=== PATIENT | male | born 1950 | race Hispanic/Latino ===

== ENCOUNTER 2017-01-19 16:05 | Emergency (ER) | payer MEDICARE ==
[2017-01-19 17:00] LABS: Basophils % (Auto) 1.1 % (0.0-1.8); Hematocrit 41.7 % (35.5-45.6); Mean Corpuscular HGB Conc 34 % (32-34); Mean Corpuscular Hemoglobin 28 pg (28-32); Mean Corpuscular Volume 85 fl (84-94); Platelet Count 279 K/mm3 (140-440); Red Blood Count 4.93 M/mm3 (3.65-5.03); Red Cell Distribution Width 15.1 % (13.2-15.2); White Blood Count 9.3 K/mm3 (4.5-11.0)
[2017-01-19] MEDS ORDERED: REGLAN IV ONE (17:07)
[2017-01-19] MEDS ORDERED: NACL 0.9% 1000 ML 1,000 ML IV ONE (17:07)
[2017-01-19 17:23] LABS: Creatine Kinase MB 1.2 ng/mL (0.0-4.0)
[2017-01-19 17:24] LABS: Anion Gap 22 mmol/L; BUN/Creatinine Ratio 15.33; Blood Urea Nitrogen 23 mg/dL (9-20); Calcium 10.1 mg/dL (8.4-10.2); Carbon Dioxide 20 mmol/L (22-30); Chloride 101.7 mmol/L (98-107); Creatine Kinase 74 units/L (55-170); Glucose 103 mg/dL (75-100); Sodium 140 mmol/L (137-145)
[2017-01-19 18:52] LABS: Urine Drugs of Abuse Note Disclamer
[2017-01-19 18:59] LABS: Bilirubin,Urine NEG (Negative); Blood,Urine NEG (Negative); Ketones,Urine NEG (Negative); Leukocyte Esterase,Urine NEG (Negative); Nitrite,Urine NEG (Negative); Urobilinogen,Urine < 2.0 mg/dL (<2.0)
[2017-01-19 19:14] VITALS: BP 162/97
--- NOTE | 2017-01-19 19:56 | Emergency Department Report ---
ED Headache HPI - General Chief Complaint: Dizziness Stated Complaint: HEADACHE Time Seen by Provider: 01/19/17 16:44 Source: patient Exam Limitations: no limitations - History of Present Illness Initial Comments: 66-year-old male presents to the emergency department complaining of headache. Patient states he was sent from his doctor's office for intermittent headache and dizziness. Patient states he is feeling lightheaded like he might pass out , but he has not lost consciousness. Symptoms began earlier today. Patient states she was also tried cutting his grass when his symptoms began. He reports some nausea, but has not vomited. There are no other complaints. Timing/Duration: other (this morning) Quality: moderate, constant, throbbing Head Injury Location: global Recent Head Trauma: no recent headache/trauma Associated Symptoms: nausea/vomiting (nausea only) Allergies/Adverse Reactions: Allergies acetaminophen [From Tylenol-Codeine #3] Allergy (Verified 10/19/14 18:27) Itching codeine phosphate [From Tylenol-Codeine #3] Allergy (Verified 10/19/14 18:27) Itching ketorolac tromethamine [From Toradol] Allergy (Verified 10/19/14 18:27) Itching Penicillins Allergy (Verified 10/19/14 18:27) Itching Home Medications: Ambulatory Orders amLODIPine [Norvasc] 10 mg PO DAILY 12/29/15 Butalb/Acetamin/Caff 50-325-40 [Fioricet] 1 each PO Q4H PRN #20 tablet 01/19/17 Citalopram [Celexa] 20 mg PO QDAY 01/19/17 Pantoprazole [Protonix TAB] 40 mg PO QDAY PRN 01/19/17 Simvastatin [Zocor TAB] 20 mg PO QHS 01/19/17 Temazepam [Restoril] 30 mg PO QHS PRN 01/19/17 cloNIDine [Catapres] 0.2 mg PO BID 01/19/17 ED Review of Systems ROS: Stated complaint: HEADACHE Other details as noted in HPI Comment: All other systems reviewed and negative Gastrointestinal: nausea Neurological: headache ED Past Medical Hx - Past Medical History Previous Medical History?: Yes Hx Hypertension: Yes (recent elevations so hydralazine added) Hx Heart Attack/AMI: No Hx Liver Disease: No Hx Renal Disease: No Hx of Cancer: Yes (colon) Hx Headaches / Migraines: Yes Hx Asthma: No Additional medical history: high cholesterol. IBS. hemorrhoids - Surgical History Past Surgical History?: Yes Additional Surgical History: colon resection - Family History Family history: no significant - Social History Smoking Status: Never Smoker Substance Use Type: None - Medications Home Medications: Home Medications Medication Instructions Recorded Confirmed Last Taken Type amLODIPine [Norvasc] 10 mg PO DAILY 12/29/15 01/19/17 1 Day Ago History Butalb/Acetamin/Caff 50-325-40 1 each PO Q4H PRN #20 tablet 01/19/17 Unknown Rx [Fioricet] Citalopram [Celexa] 20 mg PO QDAY 01/19/17 01/19/17 Unknown History Pantoprazole [Protonix TAB] 40 mg PO QDAY PRN 01/19/17 01/19/17 Unknown History Simvastatin [Zocor TAB] 20 mg PO QHS 01/19/17 01/19/17 Unknown History Temazepam [Restoril] 30 mg PO QHS PRN 01/19/17 01/19/17 Unknown History cloNIDine [Catapres] 0.2 mg PO BID 01/19/17 01/19/17 Unknown History ED Physical Exam - General Limitations: No Limitations General appearance: alert, in no apparent distress - Head Head exam: Present: atraumatic, normocephalic - Eye Eye exam: Present: normal appearance, PERRL, EOMI - ENT ENT exam: Present: normal exam, normal orophraynx, mucous membranes moist - Neck Neck exam: Present: normal inspection, full ROM. Absent: tenderness - Respiratory Respiratory exam: Present: normal lung sounds bilaterally. Absent: respiratory distress - Cardiovascular Cardiovascular Exam: Present: regular rate, normal rhythm, normal heart sounds - GI/Abdominal GI/Abdominal exam: Present: soft, normal bowel sounds. Absent: distended, tenderness - Extremities Exam Extremities exam: Present: normal inspection, full ROM. Absent: tenderness - Back Exam Back exam: Present: normal inspection, full ROM. Absent: tenderness - Neurological Exam Neurological exam: Present: alert, oriented X3. Absent: motor sensory deficit - Skin Skin exam: Present: warm, dry, intact ED Course Vital Signs 01/19/17 01/19/17 01/19/17 16:16 16:20 16:27 Temperature 97.6 F Pulse Rate 106 H 102 H Respiratory 22 24 Rate Blood Pressure 169/107 169/107 O2 Sat by Pulse 98 99 99 Oximetry 01/19/17 01/19/17 01/19/17 16:30 16:40 16:50 Temperature Pulse Rate 98 H 106 H 95 H Respiratory 21 28 H 15 Rate Blood Pressure 169/107 159/102 O2 Sat by Pulse 98 99 96 Oximetry 01/19/17 01/19/17 01/19/17 17:00 17:10 17:20 Temperature Pulse Rate 96 H 101 H 106 H Respiratory 16 17 13 Rate Blood Pressure 165/99 165/99 183/115 O2 Sat by Pulse 96 97 95 Oximetry 01/19/17 01/19/17 01/19/17 17:30 17:40 17:50 Temperature Pulse Rate 97 H 100 H 101 H Respiratory 20 24 26 H Rate Blood Pressure 170/104 170/104 185/110 O2 Sat by Pulse 95 96 98 Oximetry 01/19/17 01/19/17 01/19/17 18:00 18:10 18:20 Temperature Pulse Rate 91 H 96 H 111 H Respiratory 26 H 22 16 Rate Blood Pressure 160/96 160/96 159/93 O2 Sat by Pulse 96 95 95 Oximetry 01/19/17 01/19/17 01/19/17 18:30 18:40 18:50 Temperature Pulse Rate 105 H 92 H 101 H Respiratory 15 13 20 Rate Blood Pressure 170/92 170/92 165/98 O2 Sat by Pulse 96 94 Oximetry 01/19/17 19:00 Temperature Pulse Rate 97 H Respiratory 17 Rate Blood Pressure 162/97 O2 Sat by Pulse Oximetry ED Medical Decision Making - Lab Data Result diagrams: 01/19/17 16:42 01/19/17 16:42 - Medical Decision Making Lab results reviewed and discussed with the patient. Patient reports his headache is resolved following IV fluids and medication. Patient will be discharged home at this time to follow up with his primary care physician. - Differential Diagnosis tension headache, migraine headache, dehydration Critical care attestation.: If time is entered above; I have spent that time in minutes in the direct care of this critically ill patient, excluding procedure time. ED Disposition Clinical Impression: Head ache Qualifiers: Headache type: tension-type Headache chronicity pattern: acute headache Intractability: not intractable Qualified Code(s): G44.209 - Tension-type headache, unspecified, not intractable Disposition: DC-01 TO HOME OR SELFCARE Is pt being admited?: No Condition: Stable Instructions: Acute Headache (ED) Prescriptions: Butalb/Acetamin/Caff 50-325-40 [Fioricet] 1 each PO Q4H PRN #20 tablet PRN Reason: Headache Referrals: PRIMARY CARE, [Primary Care Provider] - 3-5 Days Time of Disposition: 20:10
== END 2017-01-19 20:58 | disposition home or self-care (01) ==
LOC: ED 16:05
DX: G43.909 Migraine, unspecified, not intractable, without status migrainosus (principal); I10 Essential (primary) hypertension; E78.00 Pure hypercholesterolemia, unspecified; Z85.038 Personal history of other malignant neoplasm of large intestine; Z88.6 Allergy status to analgesic agent; Z88.0 Allergy status to penicillin
CPT/HCPCS: 36415; 80048; 80307; 81001; 82550; 82553; 83735; 84484; 85025; 96361; 96374; 99284; G0480; J2765; J7030; 80320

== ENCOUNTER 2017-02-28 07:10 | Emergency (ER) | payer MEDICARE ==
[2017-02-28 07:59] LABS: Basophils % (Auto) 0.9 % (0.0-1.8); Eosinophils % (Auto) 8.5 % (0.0-4.3); Hematocrit 41.2 % (35.5-45.6); Hemoglobin 13.8 gm/dl (11.8-15.2); Mean Corpuscular HGB Conc 34 % (32-34); Mean Corpuscular Hemoglobin 29 pg (28-32); Mean Corpuscular Volume 87 fl (84-94); Platelet Count 309 K/mm3 (140-440); Red Blood Count 4.74 M/mm3 (3.65-5.03); Red Cell Distribution Width 15.6 % (13.2-15.2); White Blood Count 11.5 K/mm3 (4.5-11.0)
[2017-02-28 08:21] LABS: Albumin 4.2 g/dL (3.9-5); Albumin/Globulin Ratio 1.1 %; BUN/Creatinine Ratio 12.3; Bilirubin,Total 0.5 mg/dL (0.1-1.2); Chloride 102.5 mmol/L (98-107); Potassium 4.1 mmol/L (3.6-5.0); Total Protein 7.9 g/dL (6.3-8.2)
[2017-02-28 12:26] LABS: Bilirubin,Urine NEG (Negative); Blood,Urine NEG (Negative); Ketones,Urine 20 mg/dL (Negative); Leukocyte Esterase,Urine NEG (Negative); Mucus,Urine FEW /HPF; Nitrite,Urine NEG (Negative); Urobilinogen,Urine < 2.0 mg/dL (<2.0)
[2017-02-28] MEDS ORDERED: BENTYL IM ONE (13:14)
[2017-02-28] MEDS ORDERED: NACL 0.9% 250ML 250 ML IV ONE (13:14)
[2017-02-28] MEDS ORDERED: REGLAN IV ONE (13:14)
--- NOTE | 2017-02-28 13:15 | Emergency Department Report ---
ED General Adult HPI - General Chief complaint: Abdominal Pain Stated complaint: RT LOWER ABD PAIN/VOMITING Time Seen by Provider: 02/28/17 13:03 Source: patient, RN notes reviewed, old records reviewed Mode of arrival: Ambulatory Limitations: No Limitations - History of Present Illness Initial comments: This is a 66-year-old male. He is previously known to me. The patient has a past medical history of hypertension, high cholesterol, depression, anxiety, possible colon cancer and renal colic in the distant past. The patient presents to the ER with multiple complaints. The patient's first complaint is abdominal pain. It is in the right lower quadrant/flank, and radiates to the back. He denies testicular pain, and to me he denies irritative and obstructive urinary symptoms. The abdominal pain is achy, and increases with palpation and increases with range of motion. He is defecating and passing gas. The patient states complaint is headache. The headache is global and throbbing. It is not sudden or thunderclap in nature. It did not reach maximal intensity within an hour. It is not the worst headache of his life. It has been present for a few days. He reports a worse headache a few days ago. The headache does not have exacerbating or relieving factors. The patient denies temporal pain, and he denies change in vision. He denies pain with chewing and swallowing food -: Gradual Location: head, abdomen Quality: aching Consistency: intermittent Improves with: rest Worsens with: movement Associated Symptoms: headaches, loss of appetite, malaise, nausea/vomiting - Related Data Home Medications Medication Instructions Recorded Confirmed Last Taken Citalopram [Celexa] 20 mg PO QDAY 01/19/17 01/19/17 Unknown Pantoprazole [Protonix TAB] 40 mg PO QDAY PRN 01/19/17 01/19/17 Unknown cloNIDine [Catapres] 0.2 mg PO BID 01/19/17 01/19/17 Unknown Previous Rx's Medication Instructions Recorded Last Taken Type Butalb/Acetamin/Caff 50-325-40 1 each PO Q4H PRN #20 tablet 01/19/17 Unknown Rx [Fioricet] Dicyclomine [Bentyl] 10 mg PO QID PRN #20 capsule 02/28/17 Unknown Rx Ondansetron [Zofran Odt] 4 mg PO QID PRN #20 tab.rapdis 02/28/17 Unknown Rx Allergies Allergy/AdvReac Type Severity Reaction Status Date / Time acetaminophen Allergy Itching Verified 10/19/14 18:27 [From Tylenol-Codeine #3] codeine phosphate Allergy Itching Verified 10/19/14 18:27 [From Tylenol-Codeine #3] ketorolac tromethamine Allergy Itching Verified 10/19/14 18:27 [From Toradol] Penicillins Allergy Itching Verified 10/19/14 18:27 ED Review of Systems ROS: Stated complaint: RT LOWER ABD PAIN/VOMITING Other details as noted in HPI Constitutional: malaise. denies: fever Eyes: denies: eye discharge ENT: denies: epistaxis Respiratory: denies: cough Cardiovascular: denies: chest pain Genitourinary: denies: testicular pain Musculoskeletal: denies: back pain Skin: denies: lesions Neurological: headache Psychiatric: anxiety ED Past Medical Hx - Past Medical History Previous Medical History?: Yes Hx Hypertension: Yes (recent elevations so hydralazine added) Hx Heart Attack/AMI: No Hx Liver Disease: No Hx Renal Disease: No Hx Headaches / Migraines: Yes Hx Asthma: No Additional medical history: high cholesterol. IBS. hemorrhoids - Surgical History Past Surgical History?: Yes Additional Surgical History: colon resection - Social History Smoking Status: Never Smoker Substance Use Type: None - Medications Home Medications: Home Medications Medication Instructions Recorded Confirmed Last Taken Type Butalb/Acetamin/Caff 50-325-40 1 each PO Q4H PRN #20 tablet 01/19/17 Unknown Rx [Fioricet] Citalopram [Celexa] 20 mg PO QDAY 01/19/17 01/19/17 Unknown History Pantoprazole [Protonix TAB] 40 mg PO QDAY PRN 01/19/17 01/19/17 Unknown History cloNIDine [Catapres] 0.2 mg PO BID 01/19/17 01/19/17 Unknown History Dicyclomine [Bentyl] 10 mg PO QID PRN #20 capsule 02/28/17 Unknown Rx Ondansetron [Zofran Odt] 4 mg PO QID PRN #20 tab.rapdis 02/28/17 Unknown Rx ED Physical Exam - General Limitations: No Limitations General appearance: alert, anxious - Head Head exam: Present: atraumatic, normocephalic - Eye Eye exam: Present: normal appearance, EOMI. Absent: nystagmus - ENT ENT exam: Present: normal exam, normal orophraynx, mucous membranes moist, normal external ear exam - Neck Neck exam: Present: normal inspection, full ROM. Absent: tenderness, meningismus - Respiratory Respiratory exam: Present: normal lung sounds bilaterally. Absent: respiratory distress, wheezes, rales, rhonchi, stridor, chest wall tenderness, accessory muscle use, decreased breath sounds, prolonged expiratory - Cardiovascular Cardiovascular Exam: Present: regular rate, normal rhythm, normal heart sounds. Absent: bradycardia, tachycardia, irregular rhythm, systolic murmur, diastolic murmur, rubs, gallop - GI/Abdominal GI/Abdominal exam: Present: soft, normal bowel sounds. Absent: distended, tenderness, guarding, rebound, rigid, pulsatile mass - Rectal Rectal exam: Present: deferred - exam: Present: normal inspection, other (there is no testicular tenderness. There is normal testicular lie bilaterally. There is normal cremasteric reflex bilaterally.). Absent: testicular tenderness External exam: Present: normal external exam - Extremities Exam Extremities exam: Present: normal inspection, full ROM, normal capillary refill. Absent: tenderness, pedal edema, joint swelling, calf tenderness - Back Exam Back exam: Present: normal inspection, full ROM. Absent: tenderness, CVA tenderness (R), CVA tenderness (L), muscle spasm, paraspinal tenderness, vertebral tenderness - Neurological Exam Neurological exam: Present: alert, oriented X3, normal gait, other (Extraocular movements intact. Tongue midline. No facial droop. Facial sensation intact to light touch in the V1, V2, V3 distribution bilaterally. 5 and 5 strength in 4 extremities.. Sensation is intact to light touch in 4 extremities.). Absent : motor sensory deficit - Psychiatric Psychiatric exam: Present: normal affect, normal mood - Skin Skin exam: Present: warm, dry, intact, normal color. Absent: rash ED Course Vital Signs 02/28/17 02/28/17 02/28/17 07:38 13:07 13:19 Temperature 98.4 F Pulse Rate 60 62 Respiratory 16 10 L 18 Rate Blood Pressure 160/93 O2 Sat by Pulse 96 98 100 Oximetry ED Medical Decision Making - Lab Data Result diagrams: 02/28/17 07:46 07/24/17 07:46 Vital Signs 02/28/17 02/28/17 02/28/17 07:38 13:07 13:19 Temperature 98.4 F Pulse Rate 60 62 Respiratory 16 10 L 18 Rate Blood Pressure 160/93 O2 Sat by Pulse 96 98 100 Oximetry Labs 02/28/17 02/28/17 02/28/17 07:46 07:46 11:30 WBC 11.5 H RBC 4.74 Hgb 13.8 Hct 41.2 MCV 87 MCH 29 MCHC 34 RDW 15.6 H Plt Count 309 Lymph % (Auto) 22.9 [place]ake % (Auto) 7.0 Eos % (Auto) 8.5 H Baso % (Auto) 0.9 Lymph # 2.6 [place]ake # 0.8 Eos # 1.0 H Baso # 0.1 Seg Neutrophils % 60.7 Seg Neutrophils # 7.0 Sodium 142 Potassium 4.1 Chloride 102.5 Carbon Dioxide 24 Anion Gap 20 BUN 16 Creatinine 1.3 Estimated GFR 55 BUN/Creatinine Ratio 12.30 Glucose 133 H Calcium 10.0 Total Bilirubin 0.50 AST 21 ALT 22 Alkaline Phosphatase 138 H Total Protein 7.9 Albumin 4.2 Albumin/Globulin Ratio 1.1 Lipase 26 Urine Color Yellow Urine Turbidity Clear Urine pH 5.0 Ur Specific [place] 1.017 Urine Protein 100 mg/dl Urine Glucose (UA) 50 Urine Ketones 20 Urine Blood Neg Urine Nitrite Neg Urine Bilirubin Neg Urine Urobilinogen < 2.0 Ur Leukocyte Esterase Neg Urine WBC (Auto) 1.0 Urine RBC (Auto) 2.0 U Epithel Cells (Auto) < 1.0 Urine Mucus Few - EKG Data -: EKG Interpreted by Nv EKG shows normal: sinus rhythm, axis, intervals, QRS complexes, ST-T waves - Radiology Data Radiology results: report reviewed, image reviewed Noncontrast CT scan of the brain is negative for acute disease. X-ray of the abdomen and pelvis demonstrates hepatic surface nodularity and lobulation which is new. There are small intrinsic calcifications with no obvious biliary dilatation. There is a non-aneurysmal abdominal aorta. There is no hydronephrosis noted, small bilateral renal calcifications are noted, with the largest 4-5 mm right inferior renal calculus no longer identified. There is a 4 mm left lower renal cortical hyperdense hemorrhagic cyst. Bilateral renal cortical hypodensities cysts are noted. The GI tract is grossly obstructive with a normal appendix. There is a 4 x 5 x 5.6 cm enlarged prostate. Tiny prostatic calcifications. There is a stable rectosigmoid anastomosis and slight presacral stranding. There is SI joint DJD noted. - Medical Decision Making Differential diagnosis: Migraine headache, tension headache, cluster headache, cancer/tumor/malignancy constipation, renal colic, appendicitis, Assessment and plan: 66-year-old male with 2 complaints. Headache is not consistent with subarachnoid hemorrhage, stroke or temporal arteritis, he has a GCS of 15, with an NIH score of 0, with a negative CT scan of the brain. He felt improved after Reglan. His abdomen is soft and benign, with no rebound, guarding or peritoneal signs, to me he denied irritative and obstructive urinary symptoms, his genital exam was within normal limits. CT scan suggested nonspecific lesion in the liver, suggestive of cancer/tumor/malignancy. The patient is instructed to follow up with his outpatient primary care doctor, or hematology/oncology. I will also refer him to general surgery for consideration of biopsy. I impressed upon the patient importance of close outpatient follow-up for further evaluation and management for possible hepatic malignancy. Critical care attestation.: If time is entered above; I have spent that time in minutes in the direct care of this critically ill patient, excluding procedure time. ED Disposition Clinical Impression: Abdominal pain, Head ache Disposition: DC-01 TO HOME OR SELFCARE Is pt being admited?: No Does the pt Need Aspirin: No Condition: Good Additional Instructions: CT scan demonstrated nonspecific mass on the liver, concerning for cancer/tumor/ malignancy. Discontinue Zocor, restoril. Take the pain medication, nausea medication as directed. Follow up with either a primary care doctor hematology/demo specialist, for general surgeon as soon as possible to coordinate outpatient care. I recommend following up either with your primary care doctor or Dr. Robledo the oncologist as soon as possible to coordinate outpatient care. Not following up in a timely fashion may result in an undiagnosed tumor/cancer/malignancy. Do not take Motrin or acetaminophen. Return to the ER right away with new pain, worsened pain, migration of pain, fevers, chills, chest pain, shortness of breath, intractable nausea or vomiting, confusion, inability to tolerate liquid feeds. Prescriptions: Dicyclomine [Bentyl] 10 mg PO QID PRN #20 capsule PRN Reason: Pain Ondansetron [Zofran Odt] 4 mg PO QID PRN #20 tab.rapdis PRN Reason: Nausea Referrals: IRMA QUIÑONEZ MD [Primary Care Provider] - 3-5 Days VIDAL WESTBROOK MD [Staff Physician] - 3-5 Days JANNET ROBLEDO MD [Staff Physician] - 3-5 Days
--- NOTE | 2017-02-28 13:53 | Cat Scan Report ---
CT ABDOMEN AND PELVIS WITHOUT CONTRAST INDICATION: Abdominal pain. RUQ pain, radiating to right flank. History of kidney stones. COMPARISON: 09/16/2015 CT. FINDINGS: Noncontrast abdomen and pelvis CT performed. LUNG BASES: Mild density/thickening along the major fissures inferiorly with interval resolution of basilar atelectasis. No effusions. ABDOMEN: Please note that sensitivity to detect small visceral lesions is limited due to the absence of intravenous or oral contrast. Stable cholecystectomy clips. Hepatic surface nodularity/lobulation is new as on axial series 2, images 70-110. Subjacent subtle 8 x 6 x 6.7 cm minimally hyperdense mass though suspected centered about the junction of the right and left lobes. Couple small intrinsic calcifications, axial image 87. No biliary dilatation. Grossly unremarkable unenhanced spleen, pancreas, adrenals, nonaneurysmal abdominal aorta with few atherosclerotic calcifications and IVC. No hydronephrosis with small bilateral renal calcifications now measure approximately 2 mm with the largest 4-5 mm inferior right renal calculus no longer identified, likely passed in the interval. Approximately 4 mm left lower renal cortical hyperdense hemorrhagic cyst may again be noted, axial image 177. Bilateral renal cortical hypodense cysts measure up to 3 cm right interpolar and approximately 2.6 cm on the left. Few small, subcentimeter retroperitoneal and mesenteric lymph nodes. Few larger clare hepatis lymph nodes approximately 1.3 cm, axial image 116. No ascites. Nonopacified GI tract evaluation limited, though grossly nonobstructive. Normal appendix. Hepatic flexure again seen positioned between the right hemidiaphragm and the liver. Small fat-containing umbilical hernia with a transverse neck of 1 cm. PELVIS: Approximately 4.5 cm AP x 5.6 cm transverse enlarged prostate creates an impression at the bladder base and may be correlated for clinically and with PSA. Tiny prostatic calcification. Stable rectosigmoid anastomosis and slight presacral stranding as on axial images 320-365. Nonopacified urinary bladder suboptimally distended and assessed. No significant free fluid or definite adenopathy. Bilateral SI joint degenerative bridging with joint space obliteration. Few other mild imaged spinal degenerative changes. Osteopenia not excluded. CONCLUSION: 1. Noncontrast CT appearance suspicious for central hepatic mass, possibly hepatocellular carcinoma versus metastatic if there is a prior history of cancer in this patient with rectosigmoid anastomosis noted. Please correlate clinically and may also be further evaluated with dedicated liver mass protocol CT or MRI, as warranted. Few small/prominent clrae hepatis lymph nodes also seen. 2. Small nonobstructing bilateral renal calculi noted with possible interval passage of dominant right renal calculus since September 2015. 3. Various other findings, including stable cholecystectomy, bilateral renal cysts, enlarged prostate as also interval resolution of basilar atelectasis, amongst others, as detailed above. Thank you for the opportunity to participate in this patient's care.
--- NOTE | 2017-02-28 14:12 | Cat Scan Report ---
CT HEAD WITHOUT CONTRAST INDICATION: Headache. COMPARISON: 03/22/2015. FINDINGS: Noncontrast head CT again demonstrates symmetric, age-appropriate ventricles and sulci. Mild periventricular hypodense small vessel ischemic disease. No acute infarct, hemorrhage, mass effect or midline shift. No abnormal extra axial fluid collections. Normal posterior fossa with preserved basilar cisterns. Normal eye globes. Clear imaged paranasal sinuses and mastoid air cells. Normal calvarium and scalp. Few anterior teeth remaining. CONCLUSION: No acute intracranial CT abnormality or significant interval change, as described. Thank you for the opportunity to participate in this patient's care.
[2017-02-28 16:14] VITALS: BP 142/80
--- NOTE | 2017-02-28 17:37 | Emergency Department Report ---
Entered by DAYO HICKEY, acting as scribe for UMBERTO RASCON PA. Chief Complaint: Abdominal Pain Stated Complaint: RT LOWER ABD PAIN/VOMITING Time Seen by Provider: 02/28/17 10:32 - HPI History of Present Illness: Pt c/o throbbing RLQ abdominal pain that radiates to right low back pain for 2 days. Reports decreased PO intake. Reports nausea, vomiting, and chills. Reports headaches. Denies dysuria, urgency, and frequency. Denies hematuria. Denies rectal bleeding and diarrhea. Denies chest pain and SOB Notes Hx of kidney stones and colon cancer. PSHx of kidney stone surgery PCP is Dr. Levin. Notes his PCP sent him to the ED last week for a panic attack - ROS Review of Systems: All system are negative unless stated in HPI above. - Exam Vital Signs: Vital Signs 02/28/17 07:38 Temperature 98.4 F Pulse Rate 60 Respiratory 16 Rate Blood Pressure 160/93 O2 Sat by Pulse 96 Oximetry Physical Exam: General: well nourished, well developed, 66 year old male in no acute distress and nontoxic in appearance Abdomen: Soft, normal bowel sounds in all quadrants. Positive guarding. RLU tenderness. Right CVA tenderness MSE screening note: Focused history and physical exam performed. Due to findings the following was ordered: see below ED Medical Decision Making - Lab Data Result diagrams: 02/28/17 07:46 02/28/17 07:46 - Medical Decision Making Patient screened by provider in triage area. UA and CT scan of abdomen/pelvis sent in patient fast track. Patient to be seen by MD on main ED side. ED Disposition for MSE Clinical Impression: Abdominal pain, Head ache Disposition: DC-01 TO HOME OR SELFCARE Condition: Good Additional Instructions: CT scan demonstrated nonspecific mass on the liver, concerning for cancer/tumor/ malignancy. Discontinue Zocor, restoril. Take the pain medication, nausea medication as directed. Follow up with either a primary care doctor hematology/software qa system specialist, for general surgeon as soon as possible to coordinate outpatient care. I recommend following up either with your primary care doctor or Dr. Robledo the oncologist as soon as possible to coordinate outpatient care. Not following up in a timely fashion may result in an undiagnosed tumor/cancer/malignancy. Do not take Motrin or acetaminophen. Return to the ER right away with new pain, worsened pain, migration of pain, fevers, chills, chest pain, shortness of breath, intractable nausea or vomiting, confusion, inability to tolerate liquid feeds. Prescriptions: Dicyclomine [Bentyl] 10 mg PO QID PRN #20 capsule PRN Reason: Pain Ondansetron [Zofran Odt] 4 mg PO QID PRN #20 tab.rapdis PRN Reason: Nausea Referrals: JANNET ROBLEDO MD [Staff Physician] - 3-5 Days IRMA LEVIN MD [Primary Care Provider] - 3-5 Days VIDAL WESTBROOK MD [Staff Physician] - 3-5 Days This documentation as recorded by the EDELMIRA johnson JASMINE,accurately reflects the service I personally performed and the decisions made by ,UMBERTO RASCON PA.
== END 2017-02-28 16:14 | disposition home or self-care (01) ==
LOC: ED 07:10
DX: R10.9 Unspecified abdominal pain (principal); G43.909 Migraine, unspecified, not intractable, without status migrainosus; I10 Essential (primary) hypertension; E78.00 Pure hypercholesterolemia, unspecified; K58.9 Irritable bowel syndrome, unspecified; Z88.0 Allergy status to penicillin; Z88.8 Allergy status to other drugs, medicaments and biological substances
CPT/HCPCS: 36415; 70450; 74176; 80053; 81001; 83690; 85025; 87086; 93005; 93010; 96372; 96374; 99284; J0500; J2765; J7050

== ENCOUNTER 2017-06-04 04:21 | Inpatient (IN) | payer MEDICARE ==
[2017-06-04] MEDS ORDERED: BENTYL IM ONE (05:19)
[2017-06-04] MEDS ORDERED: ZOFRAN IM ONE (05:20)
[2017-06-04 06:19] LABS: Calcium 10.1 mg/dL (8.4-10.2); Chloride 98.8 mmol/L (98-107); Potassium 5.1 mmol/L (3.6-5.0)
[2017-06-04 06:39] LABS: Basophils % (Auto) 0.4 % (0.0-1.8); Eosinophils % (Auto) 2.9 % (0.0-4.3); Hematocrit 40.5 % (35.5-45.6); Hemoglobin 13.9 gm/dl (11.8-15.2); Mean Corpuscular HGB Conc 34 % (32-34); Mean Corpuscular Hemoglobin 30 pg (28-32); Mean Corpuscular Volume 87 fl (84-94); Platelet Count 258 K/mm3 (140-440); Red Blood Count 4.66 M/mm3 (3.65-5.03); Red Cell Distribution Width 15.7 % (13.2-15.2); White Blood Count 9.4 K/mm3 (4.5-11.0)
[2017-06-04] MEDS ORDERED: ZOFRAN IV ONE (06:46)
[2017-06-04] MEDS ORDERED: MORPHINE IV ONE ×3 (06:47→16:19)
[2017-06-04] MEDS ORDERED: NACL 0.9% 1000 ML 1,000 ML IV ONE ×2 (06:48→15:11)
--- NOTE | 2017-06-04 08:59 | XRay Report ---
Abdominal series: History: Nausea vomiting abdominal pain. Findings: No free intraperitoneal. No bone distention of wall thickening. Stool in colon. No radiopaque calculus or abnormal calcification. Mild emphysematous changes. No acute consolidation in the lung parenchyma. Impression: No acute lung changes. No acute abdominal findings.
[2017-06-04] MEDS: MORPHINE IV ONE ×2 (10:29→10:36)
--- NOTE | 2017-06-04 11:06 | Emergency Department Report ---
<RED REYNOLDS - Last Filed: 06/04/17 16:06> ED Abdominal Pain HPI - General Chief Complaint: Nausea/Vomiting/Diarrhea Stated Complaint: ABD PAIN/DIZZINESS Time Seen by Provider: 06/04/17 06:32 Source: EMS Mode of arrival: Stretcher Limitations: No Limitations - History of Present Illness Initial Comments: 67 YO MALE WITH C/O ABDOMINAL PAIN , NAUSEA, AND VOMITING. HE BECAME NAUSEATED AT 0200 THIS MORNING AND STARTED TO VOMIT HE FEELS THE ROOM IS SPINNING WHIILE SITTING DOWN AND ABDOMEN CRAMPING. HE RATES HIS PAIN AT 10/10 AND HAS HAD BOWEL OBSTRUCTION AND COLON CANCER FOR WHICH HE HAD A RESECTION. PER PT, HE HAD A SMALL BOWEL OBSTRUCTIONIN THE PAST MD Complaint: abdominal pain -: Gradual Location: epigastric Radiation: none Migration to: no migration Severity scale (0 -10): 10 Quality: cramping Consistency: constant Worsens With: nothing Associated Symptoms: nausea, vomiting - Related Data Home Medications Medication Instructions Recorded Confirmed Last Taken Citalopram [Celexa] 20 mg PO QDAY 01/19/17 01/19/17 Unknown Pantoprazole [Protonix TAB] 40 mg PO QDAY PRN 01/19/17 01/19/17 Unknown cloNIDine [Catapres] 0.2 mg PO BID 01/19/17 01/19/17 Unknown Previous Rx's Medication Instructions Recorded Last Taken Type Butalb/Acetamin/Caff 50-325-40 1 each PO Q4H PRN #20 tablet 01/19/17 Unknown Rx [Fioricet] Dicyclomine [Bentyl] 10 mg PO QID PRN #20 capsule 02/28/17 Unknown Rx Ondansetron [Zofran Odt] 4 mg PO QID PRN #20 tab.rapdis 02/28/17 Unknown Rx Allergies Allergy/AdvReac Type Severity Reaction Status Date / Time acetaminophen Allergy Itching Verified 10/19/14 18:27 [From Tylenol-Codeine #3] codeine phosphate Allergy Itching Verified 10/19/14 18:27 [From Tylenol-Codeine #3] ketorolac tromethamine Allergy Itching Verified 10/19/14 18:27 [From Toradol] Penicillins Allergy Itching Verified 10/19/14 18:27 ED Review of Systems ROS: Stated complaint: ABD PAIN/DIZZINESS Other details as noted in HPI Constitutional: denies: chills, fever Eyes: denies: eye pain, eye discharge, vision change ENT: denies: ear pain, throat pain Respiratory: denies: cough, shortness of breath, wheezing Cardiovascular: denies: chest pain, palpitations Endocrine: no symptoms reported Gastrointestinal: nausea. denies: abdominal pain, diarrhea, hematemesis, hematochezia Genitourinary: denies: urgency, dysuria Musculoskeletal: denies: back pain, joint swelling, arthralgia Skin: denies: rash, lesions Neurological: denies: headache, weakness, paresthesias Psychiatric: denies: anxiety, depression, auditory hallucinations, visual hallucinations Hematological/Lymphatic: denies: easy bleeding, easy bruising ED Past Medical Hx - Past Medical History Hx Hypertension: Yes (recent elevations so hydralazine added) Hx Heart Attack/AMI: No Hx Liver Disease: No Hx Renal Disease: No Hx Headaches / Migraines: Yes Hx Asthma: No Additional medical history: high cholesterol. IBS. hemorrhoids - Surgical History Additional Surgical History: colon resection - Social History Smoking Status: Never Smoker Substance Use Type: None - Medications Home Medications: Home Medications Medication Instructions Recorded Confirmed Last Taken Type Butalb/Acetamin/Caff 50-325-40 1 each PO Q4H PRN #20 tablet 01/19/17 Unknown Rx [Fioricet] Citalopram [Celexa] 20 mg PO QDAY 01/19/17 01/19/17 Unknown History Pantoprazole [Protonix TAB] 40 mg PO QDAY PRN 01/19/17 01/19/17 Unknown History cloNIDine [Catapres] 0.2 mg PO BID 01/19/17 01/19/17 Unknown History Dicyclomine [Bentyl] 10 mg PO QID PRN #20 capsule 02/28/17 Unknown Rx Ondansetron [Zofran Odt] 4 mg PO QID PRN #20 tab.rapdis 02/28/17 Unknown Rx ED Physical Exam - General Limitations: Other (BILIOUS VOMITUS NOTED INHIS BASIN) General appearance: alert, in distress, other (DESHEVELED) - Head Head exam: Present: atraumatic, normocephalic - Eye Eye exam: Present: normal appearance, EOMI. Absent: scleral icterus, conjunctival injection Pupils: Present: normal accommodation. Absent: irregular - ENT ENT exam: Present: mucous membranes moist, other - Neck Neck exam: Present: normal inspection, full ROM - Respiratory Respiratory exam: Present: normal lung sounds bilaterally. Absent: respiratory distress, wheezes, rales, chest wall tenderness - Cardiovascular Cardiovascular Exam: Present: regular rate, normal rhythm, normal heart sounds - GI/Abdominal GI/Abdominal exam: Present: soft, tenderness (EPIGASTRIUM), guarding, diminished bowel sounds, other (MIDLINE INCISION). Absent: rebound, rigid, hyperactive bowel sounds, hypoactive bowel sounds - Rectal Rectal exam: Present: deferred - Extremities Exam Extremities exam: Present: normal inspection, full ROM. Absent: tenderness - Back Exam Back exam: Present: normal inspection, full ROM. Absent: tenderness - Neurological Exam Neurological exam: Present: alert, oriented X3 ED Course Vital Signs 06/04/17 06/04/17 06/04/17 04:33 04:59 05:00 Temperature 97.9 F Pulse Rate 65 69 Respiratory 20 15 12 Rate Blood Pressure 150/66 Blood Pressure [Left] O2 Sat by Pulse 98 98 Oximetry 06/04/17 06/04/17 06/04/17 05:01 05:03 05:05 Temperature Pulse Rate 64 65 69 Respiratory 20 34 H 38 H Rate Blood Pressure 150/66 150/66 150/66 Blood Pressure [Left] O2 Sat by Pulse 95 99 99 Oximetry 06/04/17 06/04/17 06/04/17 05:07 05:09 05:11 Temperature Pulse Rate 70 81 81 Respiratory 28 H 18 25 H Rate Blood Pressure 150/66 150/66 150/66 Blood Pressure [Left] O2 Sat by Pulse 100 97 99 Oximetry 06/04/17 06/04/17 06/04/17 05:13 05:15 05:17 Temperature Pulse Rate 73 73 71 Respiratory 38 H 23 25 H Rate Blood Pressure 150/66 150/77 150/77 Blood Pressure [Left] O2 Sat by Pulse 100 99 98 Oximetry 06/04/17 06/04/17 06/04/17 05:19 05:21 05:23 Temperature Pulse Rate 73 74 72 Respiratory 25 H 22 25 H Rate Blood Pressure 150/77 150/77 150/77 Blood Pressure [Left] O2 Sat by Pulse 99 99 Oximetry 06/04/17 06/04/17 06/04/17 05:25 05:27 05:29 Temperature Pulse Rate 72 72 80 Respiratory 23 23 23 Rate Blood Pressure 150/77 150/77 150/77 Blood Pressure [Left] O2 Sat by Pulse 100 97 99 Oximetry 06/04/17 06/04/17 06/04/17 05:31 05:33 05:35 Temperature Pulse Rate 75 72 72 Respiratory 33 H 46 H 22 Rate Blood Pressure 147/87 147/87 147/87 Blood Pressure [Left] O2 Sat by Pulse 99 99 99 Oximetry 06/04/17 06/04/17 06/04/17 05:37 05:38 05:39 Temperature Pulse Rate 69 68 Respiratory 28 H 22 22 Rate Blood Pressure 147/87 147/87 Blood Pressure [Left] O2 Sat by Pulse 97 97 98 Oximetry 06/04/17 06/04/17 06/04/17 05:41 05:43 05:44 Temperature 97.9 F Pulse Rate 68 69 65 Respiratory 20 18 Rate Blood Pressure 147/87 147/87 Blood Pressure 150/66 [Left] O2 Sat by Pulse 98 99 Oximetry 06/04/17 06/04/17 06/04/17 05:45 05:46 05:47 Temperature Pulse Rate 69 67 71 Respiratory 23 20 16 Rate Blood Pressure 147/87 139/73 139/73 Blood Pressure [Left] O2 Sat by Pulse 98 99 Oximetry 06/04/17 06/04/17 06/04/17 05:49 05:51 05:53 Temperature Pulse Rate 70 69 68 Respiratory 15 24 32 H Rate Blood Pressure 139/73 139/73 139/73 Blood Pressure [Left] O2 Sat by Pulse 99 98 99 Oximetry 06/04/17 06/04/17 06/04/17 05:55 05:57 05:59 Temperature Pulse Rate 68 69 70 Respiratory 30 H 20 29 H Rate Blood Pressure 139/73 139/73 139/73 Blood Pressure [Left] O2 Sat by Pulse 98 98 97 Oximetry 06/04/17 06/04/17 06/04/17 06:00 06:01 06:03 Temperature Pulse Rate 69 69 68 Respiratory 33 H 19 19 Rate Blood Pressure 130/70 130/70 130/70 Blood Pressure [Left] O2 Sat by Pulse 98 98 97 Oximetry 06/04/17 06/04/17 06/04/17 06:05 06:07 06:09 Temperature Pulse Rate 69 72 70 Respiratory 26 H 20 22 Rate Blood Pressure 130/70 130/70 130/70 Blood Pressure [Left] O2 Sat by Pulse 98 98 97 Oximetry 06/04/17 06/04/17 06/04/17 06:11 06:13 06:15 Temperature Pulse Rate 66 70 71 Respiratory 16 22 17 Rate Blood Pressure 130/70 130/70 128/73 Blood Pressure [Left] O2 Sat by Pulse 99 98 Oximetry 06/04/17 06/04/17 06/04/17 06:16 06:17 06:19 Temperature Pulse Rate 72 72 71 Respiratory 25 H 26 H 41 H Rate Blood Pressure 128/73 128/73 128/73 Blood Pressure [Left] O2 Sat by Pulse 97 98 94 Oximetry 06/04/17 06/04/17 06/04/17 06:21 06:23 06:25 Temperature Pulse Rate 71 71 72 Respiratory 14 17 22 Rate Blood Pressure 128/73 128/73 128/73 Blood Pressure [Left] O2 Sat by Pulse 98 97 99 Oximetry 06/04/17 06/04/17 06/04/17 06:27 06:29 06:31 Temperature Pulse Rate 71 76 73 Respiratory 16 16 17 Rate Blood Pressure 128/73 128/73 140/96 Blood Pressure [Left] O2 Sat by Pulse 98 94 99 Oximetry 06/04/17 06/04/17 06/04/17 06:33 06:35 06:37 Temperature Pulse Rate 70 68 72 Respiratory 19 19 14 Rate Blood Pressure 140/96 140/96 140/96 Blood Pressure [Left] O2 Sat by Pulse 99 98 98 Oximetry 06/04/17 06/04/17 06/04/17 06:39 06:41 06:43 Temperature Pulse Rate 71 71 69 Respiratory 16 33 H 22 Rate Blood Pressure 140/96 140/96 140/96 Blood Pressure [Left] O2 Sat by Pulse 98 98 98 Oximetry 06/04/17 06/04/17 06/04/17 06:45 06:46 06:47 Temperature Pulse Rate 73 74 71 Respiratory 19 20 14 Rate Blood Pressure 145/103 145/103 145/103 Blood Pressure [Left] O2 Sat by Pulse 100 99 98 Oximetry 06/04/17 06/04/17 06/04/17 06:49 09:16 13:16 Temperature Pulse Rate 71 81 88 Respiratory 19 20 18 Rate Blood Pressure 145/103 Blood Pressure 160/89 149/88 [Left] O2 Sat by Pulse 98 99 Oximetry ED Medical Decision Making - Lab Data Result diagrams: 06/04/17 05:46 06/04/17 05:46 - Radiology Data HE WISHES TO AND TO GO TO [facility] TO BE WITH HIS PARTNER. Critical care attestation.: If time is entered above; I have spent that time in minutes in the direct care of this critically ill patient, excluding procedure time. ED Disposition Clinical Impression: Liver mass Nausea & vomiting Qualifiers: Vomiting type: bilious vomiting Qualified Code(s): R11.14 - Bilious vomiting Disposition: DC-09 OP ADMIT IP TO THIS HOSP Condition: Stable Referrals: PRIMARY CARE, [Primary Care Provider] - 3-5 Days <POLA FERNÁNDEZ - Last Filed: 06/04/17 16:38> ED Course - Consultations Consultation #1: 06/04/17 16:38 Discussed with hospitalist, he accepts patient for admission ED Medical Decision Making - Lab Data Result diagrams: 06/04/17 05:46 06/04/17 05:46 Critical Care Time: No ED Disposition Is pt being admited?: Yes Does the pt Need Aspirin: No Time of Disposition: 16:37
[2017-06-04 11:49] LABS: Alanine Aminotransferase 28 units/L (7-56); Albumin 4.5 g/dL (3.9-5); Albumin/Globulin Ratio 1.2 %; Alkaline Phosphatase 157 units/L (35-129); Bilirubin,Direct < 0.2 mg/dL (0-0.2); Bilirubin,Indirect 0.3 mg/dL; Total Protein 8.3 g/dL (6.3-8.2)
[2017-06-04] MEDS ORDERED: NACL ONE (14:58)
[2017-06-04] MEDS ORDERED: REGLAN IV ONE (15:12)
[2017-06-04 16:08] LABS: Bilirubin,Urine NEG (Negative); Blood,Urine NEG (Negative); Ketones,Urine 20 mg/dL (Negative); Leukocyte Esterase,Urine NEG (Negative); Nitrite,Urine NEG (Negative); Urobilinogen,Urine < 2.0 mg/dL (<2.0); WBC,Urine < 1.0 /HPF (0.0-6.0)
--- NOTE | 2017-06-04 16:16 | Cat Scan Report ---
FINAL REPORT EXAM: CT ABD AND PELVIS W CONTRAST HISTORY: NAUSEA AND VOMITING, ABD PAIN TECHNIQUE: CT of the abdomen and pelvis with intravenous contrast PRIORS: Correlation is made to prior CT abdomen and pelvis of September 16/2016 FINDINGS: No focal abnormality identified in the visualized portion of the lung bases. Mild linear scarring is. There is an ill-defined mass seen centrally within the liver largely within the medial left. There is some enhancement. It measures approximately 6.4 x 5.1 centimeters. There are few scattered calcification seen centrally these are increased from the prior exam. A single punctate calcification is identifiable on the prior study. No focal pancreatic abnormalities are identified. The spleen is normal in size and attenuation Multiple rounded low-density foci are present right kidney the largest at the lower pole measuring 2.9 centimeters consistent with a cyst. There is a upper pole left renal cyst measuring 2.5 centimeters. Kidneys demonstrate no evidence for hydronephrosis. There is an enlarged portacaval lymph node measuring 1.4 x 1.5 centimeters. There are some scattered prominent celiac axis nodes present. Patient is status post cholecystectomy No evidence for colonic or small bowel distention. The appendix is identified and is unremarkable. Urinary bladder is unremarkable. The prostate is prominent size. There is some prominence the seminal vesicles bilaterally. Abdominal aorta is normal in caliber No free-fluid or free air is identified. IMPRESSION: Ill-defined 6.4 centimeter mass within the liver with central irregular enhancement pattern Adenopathy with enlarged portacaval and celiac axis lymph nodes Findings are highly concerning for malignancy. Consideration given to hepatocellular carcinoma. This could be further characterized with MRI. A percutaneous biopsy may be required for definitive diagnosis. Renal cysts noted
--- NOTE | 2017-06-04 16:45 | History and Physical Report ---
History of Present Illness Chief complaint: My stomach hurts, and i keep throwing up History of present illness: 67 YO Male with Colon Cancer S/P Colon Resection, HTN, Migraine Headache, Anxiety, LD, IBS, presents to ED for evaluation. Pt states that he has experienced abdominal pain, nausea and vomiting over the past week with worsening symptoms over the past 1 day. Pt states that his symptoms became acutely worse around 0200 hrs which awoke him from his sleep. Pt experienced multiple episodes of vomiting with concomitant nausea. Pt is unable to tolerate oral intake. Pt states that his abdominal pain in 05/17, crampy in nature, diffuse, worse with movement, and relieved somewhat with lying still. Pt acknowledges unintentional weight loss over the past month, but is unsure of the actual amount. Pt seen and evaluated in ED and found to be in distress with severe abdominal discomfort on exam. Past History Past Medical History: cancer, hypertension, hyperlipidemia Past Surgical History: Other (colon resection) Social history: single. denies: smoking, alcohol abuse, prescription drug abuse Family history: no significant family history (Reviewed), other (reviewed) Medications and Allergies Allergies Allergy/AdvReac Type Severity Reaction Status Date / Time acetaminophen Allergy Itching Verified 10/19/14 18:27 [From Tylenol-Codeine #3] codeine phosphate Allergy Itching Verified 10/19/14 18:27 [From Tylenol-Codeine #3] ketorolac tromethamine Allergy Itching Verified 10/19/14 18:27 [From Toradol] Penicillins Allergy Itching Verified 10/19/14 18:27 Home Medications Medication Instructions Recorded Confirmed Last Taken Type Butalb/Acetamin/Caff 50-325-40 1 each PO Q4H PRN #20 tablet 01/19/17 06/04/17 Unknown Rx [Fioricet] Citalopram [Celexa] 20 mg PO QDAY 01/19/17 06/04/17 Unknown History Pantoprazole [Protonix TAB] 40 mg PO QDAY PRN 01/19/17 06/04/17 Unknown History cloNIDine [Catapres] 0.2 mg PO BID 01/19/17 06/04/17 Unknown History Dicyclomine [Bentyl] 10 mg PO QID PRN #20 capsule 02/28/17 06/04/17 Unknown Rx Ondansetron [Zofran Odt] 4 mg PO QID PRN #20 tab.rapdis 02/28/17 06/04/17 Unknown Rx amLODIPine [Norvasc] 10 mg PO DAILY 06/04/17 06/04/17 Unknown History Review of Systems Constitutional: weight loss, no weight gain, no fever, no chills, no sweats Ears, nose, mouth and throat: no ear pain, no ear discharge, no tinnitis, no decreased hearing, no nose pain, no nasal congestion Cardiovascular: no chest pain, no orthopnea, no palpitations, no rapid/ irregular heart beat, no edema, no syncope, no lightheadedness Respiratory: no cough, no cough with sputum, no excessive sputum, no hemoptysis , no shortness of breath, no dyspnea on exertion Gastrointestinal: abdominal pain, nausea, vomiting, loss of appetite, no constipation, no change in bowel habits, no BRBPR, no melena, no hematochezia, no excessive gas, no jaundice Genitourinary Male: no dysuria, no hematuria, no flank pain, no discharge Rectal: no pain, no incontinence Integumentary: no rash, no pruritis, no redness Neurological: no head injury, no transient paralysis, no paralysis, no weakness , no parathesias, no numbness, no tingling Psychiatric: no anxiety, no memory loss, no change in sleep habits, no sleep disturbances, no insomnia, no hypersomnia, no change in appetite Endocrine: no cold intolerance, no heat intolerance, no polyphagia, no excessive thirst, no polydipsia, no polyuria, no nocturia, no flushing Hematologic/Lymphatic: no easy bruising, no easy bleeding Allergic/Immunologic: no urticaria, no allergic rhinitis, no wheezing Exam - Constitutional Vitals: Temp Pulse Resp BP Pulse Ox 97.9 F 88 18 149/88 99 06/04/17 05:44 06/04/17 13:16 06/04/17 13:16 06/04/17 13:16 06/04/17 09:16 General appearance: Present: mild distress, cachectic, disheveled - EENT Eyes: Present: PERRL ENT: hearing intact, clear oral mucosa - Neck Neck: Present: supple, normal ROM - Respiratory Respiratory effort: normal Respiratory: bilateral: CTA - Cardiovascular Heart Sounds: Present: S1 & S2. Absent: rub, click - Extremities Extremities: pulses symmetrical, No edema Peripheral Pulses: within normal limits - Abdominal General gastrointestinal: Present: soft, tender, normal bowel sounds Localized gastrointestinal: tender: diffuse, guarding: diffuse Male genitourinary: Present: normal - Integumentary Integumentary: Present: clear, dry, clammy, decreased turgor - Musculoskeletal Musculoskeletal: generalized weakness - Psychiatric Psychiatric: no intact judgment & insight, no memory intact, depressed - Neurologic Neurologic: moves all extremities, gait normal Results - Labs CBC & Chem 7: 06/04/17 05:46 06/04/17 05:46 Labs: Abnormal lab results 06/04/17 06/04/17 06/04/17 Range/Units 05:41 05:46 05:46 RDW 15.7 H (13.2-15.2) % Seg Neutrophils % 77.6 H (40.0-70.0) % Potassium 5.1 H (3.6-5.0) mmol/L Creatinine 1.6 H (0.8-1.5) mg/dL Glucose 208 H (75-100) mg/dL POC Glucose 211 H (70-105) Alkaline Phosphatase (35-129) units/L Total Protein (6.3-8.2) g/dL Urine pH (5.0-7.0) 06/04/17 06/04/17 Range/Units 05:46 14:50 RDW (13.2-15.2) % Seg Neutrophils % (40.0-70.0) % Potassium (3.6-5.0) mmol/L Creatinine (0.8-1.5) mg/dL Glucose (75-100) mg/dL POC Glucose (70-105) Alkaline Phosphatase 157 H (35-129) units/L Total Protein 8.3 H (6.3-8.2) g/dL Urine pH 8.0 H (5.0-7.0) Assessment and Plan - Patient Problems (1) Malignant neoplasm of liver Current Visit: Yes Status: Acute Qualifiers: Liver malignancy type: L Plan to address problem: suspect metastatic disease from colon cancer. Pt request continued workup. discussed end of life care, and outpatient hospice therapy. Pt acknowledges understanding, but requests further workup at this time. CT abdomen reveeals 6.5 x 5cm liver mass higly suspicious of malignance. MRI abdomen pending, GI consulted, Dilaudid prn for pain control. (2) Abdominal pain Current Visit: Yes Status: Acute Qualifiers: Abdominal location: generalized Qualified Code(s): R10.84 - Generalized abdominal pain Plan to address problem: Pain control, IVF resuscitation, anti emetic therapy, serial abdominal exam. suspect secondary to metastatic neoplasm. (3) HTN (hypertension) Current Visit: Yes Status: Acute Qualifiers: Hypertension type: H Plan to address problem: monitor bp q shift, IV hydralazine prn due to inability to tolerated oral diet. (4) HLD (hyperlipidemia) Current Visit: Yes Status: Acute Qualifiers: Hyperlipidemia type: H Plan to address problem: continue statin therapy (5) DVT prophylaxis Current Visit: Yes Status: Acute
[2017-06-04] MEDS ORDERED: PROVENTIL IH PRN (18:37)
[2017-06-04] MEDS ORDERED: DULCOLAX PR PRN (18:37)
[2017-06-04] MEDS ORDERED: MILK OF MAGNESIA PO PRN (18:37)
[2017-06-04] MEDS ORDERED: TYLENOL PO PRN (18:37)
[2017-06-04] MEDS ORDERED: FIORICET PO PRN (18:41)
[2017-06-04] MEDS ORDERED: PROTONIX PO PRN (18:41)
[2017-06-04] MEDS ORDERED: ZOFRAN ODT PO PRN (18:41)
[2017-06-04] MEDS ORDERED: BENTYL PO PRN (18:41)
[2017-06-04] MEDS ORDERED: APRESOLINE IV PRN (20:52)
[2017-06-04] MEDS: ZOFRAN IV PRN (21:20)
[2017-06-04] MEDS ORDERED: ZOFRAN ONE (21:20)
[2017-06-04] MEDS: DILAUDID IV PRN (22:22)
[2017-06-04] MEDS ORDERED: DILAUDID ONE (22:24)
[2017-06-04] MEDS: CATAPRES PO SCH (23:00)
[2017-06-05] MEDS: NACL 0.45% 1000 ML 1,000 ML IV SCH ×2 (00:39→13:51)
[2017-06-05] MEDS: DILAUDID IV PRN ×4 (04:44→19:59)
[2017-06-05] MEDS: ZOFRAN IV PRN ×2 (09:15→19:59)
[2017-06-05] MEDS: CATAPRES PO SCH ×2 (09:17→23:45)
[2017-06-05] MEDS: celeXA PO SCH (09:17)
--- NOTE | 2017-06-05 10:52 | Progress Note ---
Assessment and Plan Assessment and plan: --Metastasis lesions for fever, in the setting of history of colon cancer Continue supportive care, MRI abdomen versus CT-guided liver biopsy Oncology following --History of colon cancer s/p surgery --Acute renal failure; secondary to vasomotor nephropathy Gently hydrate patient closely monitor venous function avoid nephrotoxic medications, if no improvement consider nephrology evaluation --Hypertension; controlled, continue current antihypertensive medications --Mild hyperkalemia; closely monitor --DVT prophylaxis; will hold all anticoagulants, in preparation for needed biopsy of the liver lesion tomorrow Comment and recommendations noted and appreciated Plan of care discussed with the patient and his nurse History Interval history: Patient seen and examined in his room this morning Medical record is reviewed, No new complaints, awaiting MRI study Patient had extensive evaluation in [place] , we'll try to obtain medical records tomorrow Hospitalist Physical - Constitutional Vitals: Temp Pulse Resp BP Pulse Ox 98.2 F 64 20 123/76 90 06/05/17 07:41 06/05/17 07:41 06/05/17 09:16 06/05/17 07:41 06/05/17 07:41 General appearance: Present: no acute distress, cachectic, disheveled - EENT Eyes: Present: PERRL, EOM intact - Neck Neck: Present: supple, normal ROM - Respiratory Respiratory effort: normal Respiratory: bilateral: diminished, negative: rales, rhonchi, wheezing - Cardiovascular Rhythm: regular Heart Sounds: Present: S1 & S2 - Extremities Extremities: no ischemia, pulses intact - Abdominal General gastrointestinal: soft, non-tender, non-distended, normal bowel sounds - Integumentary Integumentary: Present: clear, warm - Psychiatric Psychiatric: appropriate mood/affect, cooperative - Neurologic Neurologic: CNII-XII intact, moves all extremities Results - Labs CBC & Chem 7: 06/04/17 05:46 06/04/17 05:46 Labs: Laboratory Last Values WBC 9.4 K/mm3 (4.5-11.0) 06/04/17 05:46 RBC 4.66 M/mm3 (3.65-5.03) 06/04/17 05:46 Hgb 13.9 gm/dl (11.8-15.2) 06/04/17 05:46 Hct 40.5 % (35.5-45.6) 06/04/17 05:46 MCV 87 fl (84-94) 06/04/17 05:46 MCH 30 pg (28-32) 06/04/17 05:46 MCHC 34 % (32-34) 06/04/17 05:46 RDW 15.7 % (13.2-15.2) H 06/04/17 05:46 Plt Count 258 K/mm3 (140-440) 06/04/17 05:46 Lymph % (Auto) 14.9 % (13.4-35.0) 06/04/17 05:46 [place] % (Auto) 4.2 % (0.0-7.3) 06/04/17 05:46 Eos % (Auto) 2.9 % (0.0-4.3) 06/04/17 05:46 Baso % (Auto) 0.4 % (0.0-1.8) 06/04/17 05:46 Lymph # 1.4 K/mm3 (1.2-5.4) 06/04/17 05:46 [place] # 0.4 K/mm3 (0.0-0.8) 06/04/17 05:46 Eos # 0.3 K/mm3 (0.0-0.4) 06/04/17 05:46 Baso # 0.0 K/mm3 (0.0-0.1) 06/04/17 05:46 Seg Neutrophils % 77.6 % (40.0-70.0) H 06/04/17 05:46 Seg Neutrophils # 7.2 K/mm3 (1.8-7.7) 06/04/17 05:46 Sodium 139 mmol/L (137-145) 06/04/17 05:46 Potassium 5.1 mmol/L (3.6-5.0) H 06/04/17 05:46 Chloride 98.8 mmol/L (98-107) 06/04/17 05:46 Carbon Dioxide 23 mmol/L (22-30) 06/04/17 05:46 Anion Gap 22 mmol/L 06/04/17 05:46 BUN 20 mg/dL (9-20) 06/04/17 05:46 Creatinine 1.6 mg/dL (0.8-1.5) H 06/04/17 05:46 Estimated GFR 43 ml/min 06/04/17 05:46 BUN/Creatinine Ratio 13 % 06/04/17 05:46 Glucose 208 mg/dL (75-100) H 06/04/17 05:46 POC Glucose 211 (70-105) H 06/04/17 05:41 Calcium 10.1 mg/dL (8.4-10.2) 06/04/17 05:46 Total Bilirubin 0.50 mg/dL (0.1-1.2) 06/04/17 05:46 Direct Bilirubin < 0.2 mg/dL (0-0.2) 06/04/17 05:46 Indirect Bilirubin 0.3 mg/dL 06/04/17 05:46 AST 24 units/L (5-40) 06/04/17 05:46 ALT 28 units/L (7-56) 06/04/17 05:46 Alkaline Phosphatase 157 units/L (35-129) H 06/04/17 05:46 Total Protein 8.3 g/dL (6.3-8.2) H 06/04/17 05:46 Albumin 4.5 g/dL (3.9-5) 06/04/17 05:46 Albumin/Globulin Ratio 1.2 % 06/04/17 05:46 Urine Color Yellow (Yellow) 06/04/17 14:50 Urine Turbidity Clear (Clear) 06/04/17 14:50 Urine pH 8.0 (5.0-7.0) H 06/04/17 14:50 Ur Specific [place] 1.012 (1.003-1.030) 06/04/17 14:50 Urine Protein 30 mg/dl mg/dL (Negative) 06/04/17 14:50 Urine Glucose (UA) 50 mg/dL (Negative) 06/04/17 14:50 Urine Ketones 20 mg/dL (Negative) 06/04/17 14:50 Urine Blood Neg (Negative) 06/04/17 14:50 Urine Nitrite Neg (Negative) 06/04/17 14:50 Urine Bilirubin Neg (Negative) 06/04/17 14:50 Urine Urobilinogen < 2.0 mg/dL (<2.0) 06/04/17 14:50 Ur Leukocyte Esterase Neg (Negative) 06/04/17 14:50 Urine WBC (Auto) < 1.0 /HPF (0.0-6.0) 06/04/17 14:50 Urine RBC (Auto) 2.0 /HPF (0.0-6.0) 06/04/17 14:50 U Epithel Cells (Auto) < 1.0 /HPF (0-13.0) 06/04/17 14:50
--- NOTE | 2017-06-05 12:59 | Gastroenterology Consultation ---
History of Present Illness - Reason for Consult Consult date: 06/05/17 Liver Mass Requesting physician: JERRELL RODRIGUEZ - History of Present Illness The patient was admitted with epigastric abdominal pain, as well as nausea and vomiting. It should be noted the patient is a very poor historian, and a lot of his history was obtained through old records, office notes, and [facility] records. The patient was dx with rectal CA in 2013 (Patric Santana) and a resection was done that year (Thien, T2N0M0 disease). He did not get chemo/ radiation. He was noncompliant with f/u for repeat colonoscopy, and never saw Oncology. He has been admitted at both [facility] and [facility] about 4 times in the past 2 years for N/V/abdominal pain, and been dx with GERD/esophagitis/dyspepsia, etc. It was recommended that he get a colonoscopy, and he did see Dr Santana in clinic last year, but he did not f/u with surveillance CT or colonoscopy that was ordered. Beginning in 2015, CT and MRI scans at [facility] documented a new central liver mass that has increased in size (approx 3cm in Apr 2016, up to 8cm by MRI 11/2016). This was in conjunction with an elevated CEA (53,86 at 2 different labs draws at [facility] in 2016). It was recommended he get a liver biopsy but had not done so yet. He says his current abdominal pain and N/V (since being in the ER and getting pain/nausea meds) is resolved and he wants to eat. He is Rx'd meds at home, but it is not clear he is taking his protonix. He denies IV/PO drugs, but his hx if scattered. He has no family hx of CRC by his report. Past History Past Medical History: cancer, hypertension, hyperlipidemia Past Surgical History: Other (colon resection) Social history: single. denies: smoking, alcohol abuse, prescription drug abuse Family history: no significant family history (Reviewed), other (reviewed) Medications and Allergies Allergies Allergy/AdvReac Type Severity Reaction Status Date / Time acetaminophen Allergy Itching Verified 10/19/14 18:27 [From Tylenol-Codeine #3] codeine phosphate Allergy Itching Verified 10/19/14 18:27 [From Tylenol-Codeine #3] ketorolac tromethamine Allergy Itching Verified 10/19/14 18:27 [From Toradol] Penicillins Allergy Itching Verified 10/19/14 18:27 Home Medications Medication Instructions Recorded Confirmed Last Taken Type Butalb/Acetamin/Caff 50-325-40 1 each PO Q4H PRN #20 tablet 01/19/17 06/04/17 Unknown Rx [Fioricet] Citalopram [Celexa] 20 mg PO QDAY 01/19/17 06/04/17 Unknown History Pantoprazole [Protonix TAB] 40 mg PO QDAY PRN 01/19/17 06/04/17 Unknown History cloNIDine [Catapres] 0.2 mg PO BID 01/19/17 06/04/17 Unknown History Dicyclomine [Bentyl] 10 mg PO QID PRN #20 capsule 02/28/17 06/04/17 Unknown Rx Ondansetron [Zofran Odt] 4 mg PO QID PRN #20 tab.rapdis 02/28/17 06/04/17 Unknown Rx amLODIPine [Norvasc] 10 mg PO DAILY 06/04/17 06/04/17 Unknown History Active Meds: Active Medications Acetaminophen (Tylenol) 650 mg PO Q4H PRN PRN Reason: Pain MILD(1-3)/Fever >100.5/MAYA Acetaminophen/Butalbital/Caffeine (Fioricet) 1 tab PO Q4H PRN PRN Reason: Headache Albuterol (Proventil) 2.5 mg IH Q4HRT PRN PRN Reason: Shortness Of Breath Bisacodyl (Dulcolax) 10 mg [place] QDAY PRN PRN Reason: Constipation unrelieved by MOM Citalopram Hydrobromide (Celexa) 20 mg PO QDAY [facility] Last Admin: 06/05/17 09:17 Dose: 20 mg Clonidine HCl (Catapres) 0.2 mg PO BID [facility] Last Admin: 06/05/17 09:17 Dose: Not Given Dicyclomine HCl (Bentyl) 10 mg PO QID PRN PRN Reason: Pain Hydralazine HCl (Apresoline) 10 mg IV Q6HR PRN PRN Reason: Hypertension Last Admin: 06/05/17 00:36 Dose: 10 mg Hydromorphone HCl (Dilaudid) 2 mg IV Q3H PRN PRN Reason: Pain , Severe (7-10) Last Admin: 06/05/17 09:16 Dose: 2 mg Sodium Chloride (Nacl 0.45% 1000 Ml) 1,000 mls @ 75 mls/hr IV DIRECT GAURAV Last Admin: 06/05/17 00:39 Dose: 75 mls/hr Magnesium Hydroxide (Milk Of Magnesia) 30 ml PO Q4H PRN PRN Reason: Constipation Ondansetron HCl (Zofran) 4 mg IV Q8H PRN PRN Reason: N/V unrelieved by Reglan Last Admin: 06/05/17 09:15 Dose: 4 mg Pantoprazole Sodium (Protonix) 40 mg PO QDAY PRN PRN Reason: gerd Review of Systems - Review of Systems All systems: negative (as noted in the HPI.) Exam - Constitutional Vital Signs: Temp Pulse Resp BP Pulse Ox 98.2 F 64 20 123/76 90 06/05/17 07:41 06/05/17 07:41 06/05/17 09:16 06/05/17 07:41 06/05/17 07:41 General appearance: no acute distress - EENT Eyes: PERRL, EOM intact ENT: hearing intact, clear oral mucosa, poor dentition, no thrush - Neck Neck: supple, normal ROM - Respiratory Respiratory effort: normal Respiratory: bilateral: CTA - Cardiovascular Rhythm: regular Heart Sounds: Present: S1 & S2 Extremities: no ischemia, No edema - Gastrointestinal General gastrointestinal: Present: soft, non-tender, non-distended, other ( Surgical scars well healed) - Integumentary Integumentary: Present: clear, warm, dry - Neurologic Neurological: alert and oriented x3 - Labs CBC & Chem 7: 06/04/17 05:46 06/04/17 05:46 Assessment and Plan - Patient Problems (1) Liver mass Current Visit: Yes Status: Acute Plan to address problem: - Enlarging liver mass [id number]/MRI serial exams at [facility], with an elevated CEA (2016) and a hx of rectal cancer. - I would not get MRI scan as I think this would not add much at present; I have ordered a repeat CEA/AFP as well as a liver biopsy. - I will get consult with Oncology; although the patient is fairly adamant that "I don't want chemo if it's cancer" this is his only realistic option (other than hospice) if the cancer is recurrent. - Will check coags and order biopsy for tomorrow. - OK for patient to eat, but avoid anticoagulation even DVT PPY until after the liver biopsy.
[2017-06-06] MEDS: DILAUDID IV PRN ×4 (01:09→20:52)
[2017-06-06] MEDS: NACL 0.45% 1000 ML 1,000 ML IV SCH ×2 (03:24→20:52)
[2017-06-06 06:03] LABS: INR 1.07 (0.87-1.13)
[2017-06-06 06:04] LABS: Partial Thromboplastin Time 25.5 Sec. (24.2-36.6)
[2017-06-06 06:14] LABS: Calcium 9.3 mg/dL (8.4-10.2); Chloride 102.1 mmol/L (98-107)
[2017-06-06] MEDS: ZOFRAN IV PRN ×2 (08:46→20:59)
--- NOTE | 2017-06-06 09:47 | Hem/Onc Consultation ---
History of Present Illness - Reason for Consult Consult date: 06/06/17 - History of Present Illness Consult dictated. Awaiting liver biopsy. We will try to get old records from [place]. Next Follow-up on CEA and alpha-fetoprotein Past History Past Medical History: cancer, hypertension, hyperlipidemia Past Surgical History: Other (colon resection) Social history: single. denies: smoking, alcohol abuse, prescription drug abuse Family history: no significant family history (Reviewed), other (reviewed) Medications and Allergies Allergies Allergy/AdvReac Type Severity Reaction Status Date / Time acetaminophen Allergy Itching Verified 10/19/14 18:27 [From Tylenol-Codeine #3] codeine phosphate Allergy Itching Verified 10/19/14 18:27 [From Tylenol-Codeine #3] ketorolac tromethamine Allergy Itching Verified 10/19/14 18:27 [From Toradol] Penicillins Allergy Itching Verified 10/19/14 18:27 Home Medications Medication Instructions Recorded Confirmed Last Taken Type Butalb/Acetamin/Caff 50-325-40 1 each PO Q4H PRN #20 tablet 01/19/17 06/04/17 Unknown Rx [Fioricet] Citalopram [Celexa] 20 mg PO QDAY 01/19/17 06/04/17 Unknown History Pantoprazole [Protonix TAB] 40 mg PO QDAY PRN 01/19/17 06/04/17 Unknown History cloNIDine [Catapres] 0.2 mg PO BID 01/19/17 06/04/17 Unknown History Dicyclomine [Bentyl] 10 mg PO QID PRN #20 capsule 02/28/17 06/04/17 Unknown Rx Ondansetron [Zofran Odt] 4 mg PO QID PRN #20 tab.rapdis 02/28/17 06/04/17 Unknown Rx amLODIPine [Norvasc] 10 mg PO DAILY 06/04/17 06/04/17 Unknown History Active Meds: Active Medications Acetaminophen (Tylenol) 650 mg PO Q4H PRN PRN Reason: Pain MILD(1-3)/Fever >100.5/MAYA Acetaminophen/Butalbital/Caffeine (Fioricet) 1 tab PO Q4H PRN PRN Reason: Headache Albuterol (Proventil) 2.5 mg IH Q4HRT PRN PRN Reason: Shortness Of Breath Bisacodyl (Dulcolax) 10 mg [place] QDAY PRN PRN Reason: Constipation unrelieved by MOM Citalopram Hydrobromide (Celexa) 20 mg PO QDAY [facility] Last Admin: 06/05/17 09:17 Dose: 20 mg Clonidine HCl (Catapres) 0.2 mg PO BID [facility] Last Admin: 06/05/17 23:45 Dose: 0.2 mg Dicyclomine HCl (Bentyl) 10 mg PO QID PRN PRN Reason: Pain Fentanyl (Sublimaze) 100 mcg IV ONCE ONE Stop: 06/06/17 09:04 Hydralazine HCl (Apresoline) 10 mg IV Q6HR PRN PRN Reason: Hypertension Last Admin: 06/05/17 00:36 Dose: 10 mg Hydromorphone HCl (Dilaudid) 2 mg IV Q3H PRN PRN Reason: Pain , Severe (7-10) Last Admin: 06/06/17 08:38 Dose: 2 mg Sodium Chloride (Nacl 0.45% 1000 Ml) 1,000 mls @ 75 mls/hr IV DIRECT [facility] Last Admin: 06/06/17 03:24 Dose: 75 mls/hr Magnesium Hydroxide (Milk Of Magnesia) 30 ml PO Q4H PRN PRN Reason: Constipation Midazolam HCl (Versed) 5 mg IV ONCE ONE Stop: 06/06/17 09:04 Ondansetron HCl (Zofran) 4 mg IV Q8H PRN PRN Reason: N/V unrelieved by Reglan Last Admin: 06/06/17 08:46 Dose: 4 mg Pantoprazole Sodium (Protonix) 40 mg PO QDAY PRN PRN Reason: gerd Exam - Constitutional Vitals: Last Vital Signs Temp 98.2 F 06/06/17 07:47 Pulse 65 06/06/17 07:47 Resp 32 H 06/06/17 07:47 BP 156/81 06/06/17 07:47 Pulse Ox 94 06/06/17 07:47 Results - Labs lab Results: Laboratory Results - last 24 hr 06/06/17 06/06/17 05:21 05:21 PT 14.4 INR 1.07 APTT 25.5 Sodium 140 Potassium 4.0 D Chloride 102.1 Carbon Dioxide 24 Anion Gap 18 BUN 29 H Creatinine 1.6 H Estimated GFR 43 BUN/Creatinine Ratio 18 Glucose 118 H Calcium 9.3
[2017-06-06] MEDS ORDERED: VERSED IV ONE (10:30)
[2017-06-06] MEDS ORDERED: SUBLIMAZE IV ONE (10:30)
--- NOTE | 2017-06-06 10:42 | Cat Scan Report ---
CT BIOPSY LIVER HISTORY: Rectal cancer, liver mass DESCRIPTION OF PROCEDURE: Informed consent was obtained. Sterile technique was utilized. Conscious sedation was accomplished with Versed and fentanyl. The patient was sedated for 15 minutes. Intraobserver time of 20 minutes. Independent cardiorespiratory monitoring by RN. Using CT guidance, a 17-gauge introducer needle was advanced to the leading edge of a 7.9 cm right hepatic lobe mass. A single 2.3 cm 18-gauge core biopsy was obtained. The pathologist was present to handle and assess the sample. The patient tolerated the procedure without difficulty. Followup scan demonstrated no evidence for post biopsy hemorrhage. IMPRESSION: Successful CT-guided biopsy of the liver mass.
[2017-06-06] MEDS: CATAPRES PO SCH ×2 (11:18→21:48)
[2017-06-06] MEDS: celeXA PO SCH (11:19)
--- NOTE | 2017-06-06 17:53 | Event Note ---
Date: 06/06/17 Patient had liver biopsy today for (suspected) recurrent colorectal cancer. Appreciate Onco consult. Will f/u tomorrow when I hope Path returns. OK to d/ c home when taking PO, and abdominal pain (chronic) is controlled/at baseline.
--- NOTE | 2017-06-06 19:23 | Progress Note ---
Assessment and Plan Assessment and plan: --Metastasis lesions of the liver, in the setting of history of colon cancer CT-guided liver biopsy today, GI and Oncology following --History of colon cancer s/p surgery --Acute renal failure; secondary to vasomotor nephropathy Gently hydrate patient closely monitor venous function avoid nephrotoxic medications, if no improvement consider nephrology evaluation --Hypertension; controlled, continue current antihypertensive medications --Mild hyperkalemia; corrected --DVT prophylaxis; will hold all anticoagulants, for the procedure Follow biopsy report, consults and recommendations noted and appreciated. Plan of care discussed with the patient and his nurse History Interval history: Patient seen and examined Medical records reviewed, scheduled for liver lesion biopsy Patient complains of generalized weakness Hospitalist Physical - Constitutional Vitals: Temp Pulse Resp BP Pulse Ox 98.4 F 62 18 167/78 86 06/06/17 16:54 06/06/17 16:54 06/06/17 16:54 06/06/17 16:54 06/06/17 16:54 General appearance: Present: no acute distress, cachectic, disheveled - EENT Eyes: Present: PERRL, EOM intact - Neck Neck: Present: supple, normal ROM - Respiratory Respiratory effort: normal Respiratory: negative: rales, rhonchi, wheezing - Cardiovascular Rhythm: regular Heart Sounds: Present: S1 & S2 - Extremities Extremities: no ischemia, No edema - Abdominal General gastrointestinal: soft, non-tender, non-distended, normal bowel sounds - Integumentary Integumentary: Present: clear, warm - Psychiatric Psychiatric: appropriate mood/affect, cooperative - Neurologic Neurologic: CNII-XII intact, moves all extremities Results - Labs CBC & Chem 7: 06/04/17 05:46 06/06/17 05:21 Labs: Laboratory Last Values WBC 9.4 K/mm3 (4.5-11.0) 06/04/17 05:46 RBC 4.66 M/mm3 (3.65-5.03) 06/04/17 05:46 Hgb 13.9 gm/dl (11.8-15.2) 06/04/17 05:46 Hct 40.5 % (35.5-45.6) 06/04/17 05:46 MCV 87 fl (84-94) 06/04/17 05:46 MCH 30 pg (28-32) 06/04/17 05:46 MCHC 34 % (32-34) 06/04/17 05:46 RDW 15.7 % (13.2-15.2) H 06/04/17 05:46 Plt Count 258 K/mm3 (140-440) 06/04/17 05:46 Lymph % (Auto) 14.9 % (13.4-35.0) 06/04/17 05:46 [place] % (Auto) 4.2 % (0.0-7.3) 06/04/17 05:46 Eos % (Auto) 2.9 % (0.0-4.3) 06/04/17 05:46 Baso % (Auto) 0.4 % (0.0-1.8) 06/04/17 05:46 Lymph # 1.4 K/mm3 (1.2-5.4) 06/04/17 05:46 [place] # 0.4 K/mm3 (0.0-0.8) 06/04/17 05:46 Eos # 0.3 K/mm3 (0.0-0.4) 06/04/17 05:46 Baso # 0.0 K/mm3 (0.0-0.1) 06/04/17 05:46 Seg Neutrophils % 77.6 % (40.0-70.0) H 06/04/17 05:46 Seg Neutrophils # 7.2 K/mm3 (1.8-7.7) 06/04/17 05:46 PT 14.4 Sec. (12.2-14.9) 06/06/17 05:21 INR 1.07 (0.87-1.13) 06/06/17 05:21 APTT 25.5 Sec. (24.2-36.6) 06/06/17 05:21 Sodium 140 mmol/L (137-145) 06/06/17 05:21 Potassium 4.0 mmol/L (3.6-5.0) D 06/06/17 05:21 Chloride 102.1 mmol/L (98-107) 06/06/17 05:21 Carbon Dioxide 24 mmol/L (22-30) 06/06/17 05:21 Anion Gap 18 mmol/L 06/06/17 05:21 BUN 29 mg/dL (9-20) H 06/06/17 05:21 Creatinine 1.6 mg/dL (0.8-1.5) H 06/06/17 05:21 Estimated GFR 43 ml/min 06/06/17 05:21 BUN/Creatinine Ratio 18 % 06/06/17 05:21 Glucose 118 mg/dL (75-100) H 06/06/17 05:21 POC Glucose 211 (70-105) H 06/04/17 05:41 Calcium 9.3 mg/dL (8.4-10.2) 06/06/17 05:21 Total Bilirubin 0.50 mg/dL (0.1-1.2) 06/04/17 05:46 Direct Bilirubin < 0.2 mg/dL (0-0.2) 06/04/17 05:46 Indirect Bilirubin 0.3 mg/dL 06/04/17 05:46 AST 24 units/L (5-40) 06/04/17 05:46 ALT 28 units/L (7-56) 06/04/17 05:46 Alkaline Phosphatase 157 units/L (35-129) H 06/04/17 05:46 Total Protein 8.3 g/dL (6.3-8.2) H 06/04/17 05:46 Albumin 4.5 g/dL (3.9-5) 06/04/17 05:46 Albumin/Globulin Ratio 1.2 % 06/04/17 05:46 Urine Color Yellow (Yellow) 06/04/17 14:50 Urine Turbidity Clear (Clear) 06/04/17 14:50 Urine pH 8.0 (5.0-7.0) H 06/04/17 14:50 Ur Specific [place] 1.012 (1.003-1.030) 06/04/17 14:50 Urine Protein 30 mg/dl mg/dL (Negative) 06/04/17 14:50 Urine Glucose (UA) 50 mg/dL (Negative) 06/04/17 14:50 Urine Ketones 20 mg/dL (Negative) 06/04/17 14:50 Urine Blood Neg (Negative) 06/04/17 14:50 Urine Nitrite Neg (Negative) 06/04/17 14:50 Urine Bilirubin Neg (Negative) 06/04/17 14:50 Urine Urobilinogen < 2.0 mg/dL (<2.0) 06/04/17 14:50 Ur Leukocyte Esterase Neg (Negative) 06/04/17 14:50 Urine WBC (Auto) < 1.0 /HPF (0.0-6.0) 06/04/17 14:50 Urine RBC (Auto) 2.0 /HPF (0.0-6.0) 06/04/17 14:50 U Epithel Cells (Auto) < 1.0 /HPF (0-13.0) 06/04/17 14:50
--- NOTE | 2017-06-07 00:26 | Consultation ---
REFERRING PHYSICIAN: Dr. Leal. REASON FOR CONSULTATION: Liver mass, history of rectal cancer. HISTORY OF PRESENT ILLNESS: The patient is a 67-year-old male who presented to the hospital with epigastric pain along with nausea and vomiting. The patient apparently had rectal exam in 2013, diagnosed by Dr. Hosea Santana and resection was done by Dr. Wood. He did not get any chemo or radiation and did not see an oncologist. He has been found to have a liver lesion which was diagnosed on his scan in early 2015. Apparently, it has been growing and last MRI in November 2016 showed the mass to be 8 cm. The patient has had elevated CEA. He was recommended to get a liver biopsy, which he did not get done. He presented to the hospital with worsening abdominal pain. He was found on his scan this time on 06/04/2017 to have evidence of a large 6.4 x 5.1 cm liver lesion, largely within the medial left. There was few scattered calcification which had increased from prior scan. There was adenopathy in portacaval and celiac axis lymph nodes. The biopsy of this mass is to be done today. PAST MEDICAL HISTORY: As mentioned in history of present illness. SOCIAL HISTORY: Currently does not smoke or drink. FAMILY HISTORY: He does not know his family well. PHYSICAL EXAMINATION: GENERAL: The patient is awake and oriented, seems to be in distress. HEENT: Unremarkable. CHEST: Decreased breath sounds at the bases. CARDIOVASCULAR: Regular. ABDOMEN: Slightly distended. EXTREMITIES: Have no clubbing, cyanosis, or edema. LABORATORY DATA: The patient's current lab work shows his hemoglobin to be 13.9, platelets 258,000. White count 9.4, INR 1.07. Creatinine of 1.6. CEA is pending. His total protein is 8.3, alkaline phosphatase 157, ALT, AST within normal limits. Bilirubin within normal limits. ASSESSMENT: 1. History of colorectal cancer in 2013, did not receive any chemo or radiation therapy. 2. Liver mass with high CEA on his last labs, possible metastatic disease to the liver. Rule out primary liver malignancy. RECOMMENDATION AND PLAN: Agree with biopsy. We will follow up on the alpha fetoprotein, CEA. May need a PET scan as outpatient. May need chemotherapy. We will be discussing all back once we have more information. I will try to get old records from [facility]. JOB# [id number] JOSEPH/PASCUAL
[2017-06-07] MEDS: DILAUDID IV PRN ×4 (05:24→21:17)
--- NOTE | 2017-06-07 09:23 | Hem/Onc Progress Note ---
Assessment and Plan If patient is able to take by mouth, he can be discharged and I will follow-up as outpatient.business card provided Subjective Date of service: 06/07/17 Interval history: Patient trying to take by mouth. Pain is improved. Tolerated liver biopsy yesterday. Results pending. Objective - Constitutional Vitals: Last Vital Signs Temp 98.3 F 06/07/17 07:10 Pulse 62 06/07/17 07:10 Resp 15 06/07/17 07:10 BP 140/79 06/07/17 07:10 Pulse Ox 93 06/07/17 07:10 General appearance: no acute distress Performance status: 2- selfcare, ambulatory - Neck Neck: supple - Respiratory Respiratory effort: Positive: normal - Cardiovascular Rhythm: regular Extremities: No edema - Gastrointestinal General gastrointestinal: Present: soft
[2017-06-07] MEDS: NACL 0.45% 1000 ML 1,000 ML IV SCH (09:53)
[2017-06-07] MEDS: celeXA PO SCH (09:53)
[2017-06-07] MEDS: CATAPRES PO SCH ×2 (09:54→21:19)
--- NOTE | 2017-06-07 10:18 | Discharge Summary ---
Providers - Providers Date of Admission: 06/04/17 18:37 Date of discharge: 06/07/17 Attending physician: JERRELL RODRIGUEZ 06/04/17 19:50 Consult to Physician [CONS] Routine Consulting Provider: WENDY CARTWRIGHT Reason For Exam: Liver neoplasm/ H/O colon cancer Place consult to:: DR. CARTWRIGHT Notified:: A.S. Phone number called:: [phone] Was contact made?: Yes If yes, spoke with:: DEE DEE Time called:: 10:08 Comment:: JUSTYNA NOTIFIED 06/05/17 12:55 Consult to Physician [CONS] Routine Consulting Provider: ALEXYS MCKEON Reason For Exam: Metastatic colon cancer Place consult to:: DR. MCKEON Notified:: A.S. Phone number called:: [phone] Was contact made?: Yes If yes, spoke with:: ABBY Time called:: 13:33 Comment:: JUSTYNA NOTIFIED Primary care physician: TIE HACKER Hospitalization Condition: Stable Disposition: DC/TX-06 HOME UNDER HOME [facility] Core Measure Documentation - Palliative Care Palliative Care/ Comfort Measures: Not Applicable - Core Measures Any of the following diagnoses?: none Exam - Constitutional Vitals: Temp Pulse Resp BP Pulse Ox 98.3 F 62 15 140/79 95 06/07/17 07:10 06/07/17 07:10 06/07/17 07:10 06/07/17 07:10 06/07/17 09:12 General appearance: Present: no acute distress, cachectic, disheveled - EENT Eyes: Present: PERRL, EOM intact - Neck Neck: Present: supple, normal ROM - Respiratory Respiratory effort: normal Respiratory: negative: rales, rhonchi, wheezing - Cardiovascular Rhythm: regular Heart Sounds: Present: S1 & S2 - Extremities Extremities: no ischemia, No edema - Abdominal General gastrointestinal: Present: soft, non-tender, non-distended, normal bowel sounds - Integumentary Integumentary: Present: clear, warm - Musculoskeletal Musculoskeletal: strength equal bilaterally, generalized weakness - Psychiatric Psychiatric: appropriate mood/affect, cooperative - Neurologic Neurologic: CNII-XII intact, moves all extremities Plan Activity: advance as tolerated Diet: regular Additional Instructions: Advised to comply with follow-up visits with GI, primary care physician, hematology oncologist Follow up with: PRIMARY CARE, [Primary Care Provider] - 3-5 Days ALEXYS MCKEON MD [Staff Physician] - 7 Days DAVIDSON RIVERA MD [Staff Physician] - 7 Days Prescriptions: Butalb/Acetamin/Caff 50-325-40 [Fioricet] 1 each PO Q4H PRN #20 tablet PRN Reason: Headache cloNIDine [Catapres] 0.2 mg PO BID #60 tablet Dicyclomine [Bentyl] 10 mg PO QID PRN #20 capsule PRN Reason: Pain HYDROmorphone [Dilaudid] 1 mg PO BID PRN #14 tablet PRN Reason: Pain Pantoprazole [Protonix TAB] 40 mg PO QDAY PRN #30 tablet PRN Reason: gerd
[2017-06-07] MEDS: ZOFRAN IV PRN (21:23)
[2017-06-08 00:05] VITALS: BP 167/93
[2017-06-08] MEDS: DILAUDID IV PRN (00:06)
== END 2017-06-08 00:21 | disposition hospice, inpatient (51) | DRG 435 ==
LOC: ED 04:21 → 3A 18:37
PROVIDERS: ADMIT Internal Medicine; ATTEND Internal Medicine
PROC: 0FB13ZX Excision of Right Lobe Liver, Percutaneous Approach, Diagnostic (ICD-10-PCS; principal; 2017-06-06)
DX: C78.7 Secondary malignant neoplasm of liver and intrahepatic bile duct (principal); N17.0 Acute kidney failure with tubular necrosis; I10 Essential (primary) hypertension; G43.909 Migraine, unspecified, not intractable, without status migrainosus; E78.5 Hyperlipidemia, unspecified; E87.5 Hyperkalemia; K58.9 Irritable bowel syndrome, unspecified; F41.9 Anxiety disorder, unspecified; K21.9 Gastro-esophageal reflux disease without esophagitis; Z79.899 Other long term (current) drug therapy; Z88.5 Allergy status to narcotic agent; Z88.0 Allergy status to penicillin; Z90.49 Acquired absence of other specified parts of digestive tract; Z85.038 Personal history of other malignant neoplasm of large intestine
CPT/HCPCS: 36415; 47000; 74022; 74176; 77012; 80048; 80074; 81001; 82106; 82378; 82962; 85025; 85610; 85730; 88307; 88333; 88341; 88342; 96361; 96372; 96374; 96375; 96376; J0360; J0500; J1170; J2250; J2270; J2405; J2765; J3010; J7030

== ENCOUNTER 2017-07-21 13:09 | Emergency (ER) | payer MEDICARE ==
[2017-07-21 13:23] VITALS: BP 134/75
--- NOTE | 2017-07-21 13:56 | Emergency Department Report ---
HPI - General Chief Complaint: Fall Time Seen by Provider: 07/21/17 13:20 - HPI HPI: This is a 67-year-old male presents to the emergency department via EMS with a complaint of a fall and possible syncopal episode at home just prior to presentation. The patient says that he cannot remember the event but knows that he was headed down the stairs to go and get something to eat and ended up going head first into some furniture. He complains of a headache, neck pain and some back pain. He denies any numbness or paresthesias, vision change, slurred speech or any other neurological deficits. The patient is currently getting home health care/hospice for a history of advanced colon and liver cancer. He did not receive anything or taken anything for her symptoms prior to presentation. ED Past Medical Hx - Past Medical History Hx Hypertension: Yes Hx Heart Attack/AMI: No Hx Liver Disease: No Hx Renal Disease: No Hx Headaches / Migraines: Yes Hx Kidney Stones: Yes (abnormal ultrasound of kidneys/liver 2014) Hx Asthma: No Hx HIV: No Additional medical history: high cholesterol. IBS. hemorrhoids - Surgical History Additional Surgical History: colon resection - Social History Smoking Status: Never Smoker Substance Use Type: None - Medications Home Medications: Home Medications Medication Instructions Recorded Confirmed Last Taken Type Citalopram [Celexa] 20 mg PO QDAY 01/19/17 06/04/17 Unknown History Ondansetron [Zofran Odt] 4 mg PO QID PRN #20 tab.rapdis 02/28/17 06/04/17 Unknown Rx Butalb/Acetamin/Caff 50-325-40 1 each PO Q4H PRN #20 tablet 06/07/17 Unknown Rx [Fioricet] Dicyclomine [Bentyl] 10 mg PO QID PRN #20 capsule 06/07/17 Unknown Rx HYDROmorphone [Dilaudid] 1 mg PO BID PRN #14 tablet 06/07/17 Unknown Rx Pantoprazole [Protonix TAB] 40 mg PO QDAY PRN #30 tablet 06/07/17 Unknown Rx cloNIDine [Catapres] 0.2 mg PO BID #60 tablet 06/07/17 Unknown Rx ED Review of Systems ROS: Stated complaint: FALL Other details as noted in HPI Comment: All other systems reviewed and negative Constitutional: denies: chills, fever Eyes: denies: eye pain, eye discharge, vision change ENT: denies: ear pain, throat pain Respiratory: denies: cough, shortness of breath, wheezing Cardiovascular: denies: chest pain, palpitations Gastrointestinal: denies: abdominal pain, nausea, diarrhea Genitourinary: denies: urgency, dysuria Musculoskeletal: back pain. denies: arthralgia Skin: denies: rash, lesions Neurological: headache. denies: numbness Physical Exam - Physical Exam Vital Signs: Vital Signs 07/21/17 13:18 Temperature 97.8 F Pulse Rate 88 Respiratory 16 Rate Blood Pressure 134/75 O2 Sat by Pulse 96 Oximetry Physical Exam: GENERAL: The patient is well-developed well-nourished. HENT: Normocephalic. Atraumatic. Patient has moist mucous membranes. No septal hematoma. EYES: Extraocular motions are intact. Pupils equal reactive to light bilaterally. No nystagmus. NECK: Supple. Trachea is midline. CHEST/LUNGS: Clear to auscultation. There is no respiratory distress noted. HEART/CARDIOVASCULAR: Regular. There is no tachycardia. There is no murmur. ABDOMEN: Abdomen is soft, nontender. Patient has normal bowel sounds. There is no abdominal distention. SKIN: Trachea is midline. NEURO: The patient is awake, alert. The patient is cooperative. The patient has no focal neurologic deficits. The patient has normal speech and gait. Cranial nerves II through XII grossly intact. MUSCULOSKELETAL: There is no tenderness or deformity. There is no limitation range of motion. There is no evidence of acute injury. Muscle strength 5 out of 5 upper and lower extremities bilaterally including EHL. ED Course Vital Signs 07/21/17 13:18 Temperature 97.8 F Pulse Rate 88 Respiratory 16 Rate Blood Pressure 134/75 O2 Sat by Pulse 96 Oximetry ED Medical Decision Making - Lab Data Result diagrams: 07/21/17 14:04 07/21/17 14:04 - EKG Data -: EKG Interpreted by Me EKG shows normal: sinus rhythm, axis, intervals, QRS complexes, ST-T waves Rate: normal - EKG Data When compared to previous EKG there are: previous EKG unavailable Interpretation: normal EKG - Radiology Data Radiology results: report reviewed CT THORACIC SPINE WITHOUT CONTRAST CT LUMBAR SPINE WITHOUT CONTRAST History: Fall, back pain Technique: Helical CT with sagittal and coronal reformatted images. Findings: The vertebral bodies, posterior elements, spinal canal and paraspinal soft tissues are unremarkable. No acute injury is identified. Minimal multilevel degenerative changes are noted. Impression: No evidence for acute injury. Transcribed By: TTR Dictated By: STEVEN RUSSELL JR, MD Electronically Authenticated By: STEVEN RUSSELL JR, MD Signed Date/Time: 07/21/[address] NECK WITH CONTRAST: HISTORY: Fall. TECHNIQUE: Helical CT following IV contrast. Sagittal and coronal reformatted images. FINDINGS: The parotid and submandibular glands are normal. The carotid sheaths are intact. There is no evidence of adenopathy within the neck. The thyroid gland is normal. The glottic structures are normal. The airway is patent. Strap musculature is unremarkable. Hyoid bone and thyroid cartilage are intact. IMPRESSION: Unremarkable CT neck. Transcribed By: TTR Dictated By: STEVEN RUSSELL JR, MD Electronically Authenticated By: STEVEN RUSSELL JR, MD Signed Date/Time: 07/21/[address] HEAD WITHOUT CONTRAST: HISTORY: Fall. TECHNIQUE: Sequential 2.5mm CT images. COMPARISON: none. FINDINGS: Cerebral Parenchyma: Within normal limits. Cerebellum: Within normal limits. Brainstem: Within normal limits. Ventricles: Normal. Sella: Normal. Extra-axial spaces: Normal. Basal Cisterns: Normal. Intracranial Hemorrhage: None. Midline Shift: None. Calvarium: Normal. Sinuses: Normal. Mastoid Air Cells: Normal. Visualized Orbits: Normal. IMPRESSION: Cranial CT scan within normal limits. Transcribed By: TTR Dictated By: STEVEN RUSSELL JR, MD Electronically Authenticated By: STEVNE RUSSELL JR, MD Signed Date/Time: 07/21/17 1409 - Medical Decision Making 67-year-old male presents to the emergency department after he had some type of fall and/or loss of consciousness. Unknown whether he lost consciousness and then fell or lost consciousness secondary to his head injury. There are no obvious signs of injury on physical examination but the patient complains of a headache and some neck and back pain. A CT was done of the head, cervical/ thoracic/lumbar spine and there was no fractures, dislocations, subluxations, brain bleed or any acute processes seen. His labs are mostly unremarkable as well except for some renal insufficiency which he does have a history of based on previous labs. Once his c-collar was cleared, he was able to get up and ambulate around the emergency department without any assistance, although he was being monitored, and he did not show any signs of instability. Vital signs stable. He has home health care and hospice including his normal medications plus pain medications. He will be discharged back to his hospice care and they can return to the emergency Department with any worsening of the symptoms or any acute distress - Differential Diagnosis fracture, contusion, laceration, subluxation, dislocation Critical Care Time: No Critical care attestation.: If time is entered above; I have spent that time in minutes in the direct care of this critically ill patient, excluding procedure time. ED Disposition Clinical Impression: Fall Qualifiers: Encounter type: initial encounter Qualified Code(s): W19.XXXA - Unspecified fall, initial encounter Headache Qualifiers: Headache type: unspecified Headache chronicity pattern: unspecified pattern Intractability: not intractable Qualified Code(s): R51 - Headache Back pain Qualifiers: Back pain location: back pain in unspecified location Chronicity: unspecified Back pain laterality: unspecified Qualified Code(s): M54.9 - Dorsalgia, unspecified Disposition: DC-01 TO HOME OR SELFCARE Is pt being admited?: No Condition: Stable Instructions: Fall Prevention for Older Adults (ED), Minor Head Injury (ED), Acute Headache (ED), Back Pain (ED), Impaired Kidney Function (ED) Additional Instructions: Please follow-up with your primary care physician in the next few days. Continue with your hospice care. return to the Ed with any worsening of your symptoms or any acute distress. Referrals: GUERRERO JUNG MD [Primary Care Provider] - 3-5 Days Time of Disposition: 14:53
--- NOTE | 2017-07-21 14:14 | Cat Scan Report ---
CT NECK WITH CONTRAST: HISTORY: Fall. TECHNIQUE: Helical CT following IV contrast. Sagittal and coronal reformatted images. FINDINGS: The parotid and submandibular glands are normal. The carotid sheaths are intact. There is no evidence of adenopathy within the neck. The thyroid gland is normal. The glottic structures are normal. The airway is patent. Strap musculature is unremarkable. Hyoid bone and thyroid cartilage are intact. IMPRESSION: Unremarkable CT neck.
--- NOTE | 2017-07-21 14:14 | Cat Scan Report ---
CT HEAD WITHOUT CONTRAST: HISTORY: Fall. TECHNIQUE: Sequential 2.5mm CT images. COMPARISON: none. FINDINGS: Cerebral Parenchyma: Within normal limits. Cerebellum: Within normal limits. Brainstem: Within normal limits. Ventricles: Normal. Sella: Normal. Extra-axial spaces: Normal. Basal Cisterns: Normal. Intracranial Hemorrhage: None. Midline Shift: None. Calvarium: Normal. Sinuses: Normal. Mastoid Air Cells: Normal. Visualized Orbits: Normal. IMPRESSION: Cranial CT scan within normal limits.
--- NOTE | 2017-07-21 14:17 | Cat Scan Report ---
CT THORACIC SPINE WITHOUT CONTRAST CT LUMBAR SPINE WITHOUT CONTRAST History: Fall, back pain Technique: Helical CT with sagittal and coronal reformatted images. Findings: The vertebral bodies, posterior elements, spinal canal and paraspinal soft tissues are unremarkable. No acute injury is identified. Minimal multilevel degenerative changes are noted. Impression: No evidence for acute injury.
[2017-07-21 14:24] LABS: Hematocrit 38.3 % (35.5-45.6); Hemoglobin 12.7 gm/dl (11.8-15.2); Mean Corpuscular HGB Conc 33 % (32-34); Mean Corpuscular Hemoglobin 29 pg (28-32); Mean Corpuscular Volume 86 fl (84-94); Platelet Count 240 K/mm3 (140-440); Red Blood Count 4.45 M/mm3 (3.65-5.03); White Blood Count 8.7 K/mm3 (4.5-11.0)
[2017-07-21 14:42] LABS: Anion Gap 19 mmol/L; BUN/Creatinine Ratio 8; Blood Urea Nitrogen 15 mg/dL (9-20); Calcium 9.1 mg/dL (8.4-10.2); Carbon Dioxide 26 mmol/L (22-30); Chloride 99.7 mmol/L (98-107); Glucose 85 mg/dL (75-100); Potassium 4.4 mmol/L (3.6-5.0); Sodium 140 mmol/L (137-145)
[2017-07-21 16:37] LABS: Anisocytosis 1+; Blastocytes % (Manual) 0 %
[2017-07-21 16:38] LABS: Diff Status Complete; Platelet Estimate Consistent w Auto
== END 2017-07-21 15:09 | disposition home or self-care (01) ==
LOC: ED 13:09
DX: M54.9 Dorsalgia, unspecified (principal); R51 Headache; I10 Essential (primary) hypertension
CPT/HCPCS: 36415; 70450; 70490; 72128; 72131; 80048; 84484; 85007; 85025; 93005; 93010